=== PATIENT | male | born 1955 | race Caucasian/White ===

== ENCOUNTER 2017-07-01 14:30 | Outpatient (RCR) | payer OTHER, SELFPAY ==
--- NOTE | 2017-06-04 10:23 | HP.PTEVAL_ITS ---
Patient's Visit Information ANH VIRAMONTES is a 61 year old M referred to Physical Therapy by DR.RSTACH Bev with a diagnosis of RTC impingment. Date of Evaluation: 06/04/17 Physical Therapist: Katie Denny - Visit Plan Frequency: 2x /Week Duration: 4 Weeks Plan: Focus on pain management and functional mobility- caution of wrist fracture - Subjective Subjective: Fell May 14, 2016 on the ice. 10 screws and plate at [facility]- broke the wrist. Shoulder pain started about a week ago- went back to [facility]- they went back and they did an injection. The ROM is better but he is still having a lot of pain in the shoulder. The pain is in the upper trap, cervical spine and down to the elbow. Agg: sleeping Eases: keeping it moving. Describes pain as dull/achy. 8-9/10 at its worst. Pain comes and goes. Best: 2/10. Sleep: very disturbed. Goes morning [facility] for occupational therapy. Not sure if he hurt the shoulder when he fell. N/T in the fingers. Eases: heat, ice, movement. No THOMPSON, blurred vision , dizziness. PMHx: HTN, Meds: HTN med, Clonopan,Lysinopril. X-rays were negative. of the shoulder - Objective Posture: FH, RS- increased guarding of the left UE-movement while sitting- squirming'. Gait: no deviation. Observation: splint to left forearm. Palpation: significant trigger points throughout left upper trap and cervical paraspinals. ROM: WNL in all planes for cervical and shoulder. Strength: Scap : fair, Cervical: 5/5, Shoulder: 4+/5 (tested close to shoulder joint to avoid wrist fracture). Special Test: distraction of the cervical spine increased pain - Goals Goal 1:: Patient will be I with HEP and progression Goal Time Frame: 4-6 Weeks Goal 2:: Patient will report 0/10 pain for 1 week Goal Time Frame: 4-6 Weeks Goal 3:: Patient will have mild trigger points throughout musculature Goal Time Frame: 4-6 Weeks Goal 4:: Patient will demo ability to stack 5 cones for 2 min to overhead shelf with 0/10 pain Goal Time Frame: 4-6 Weeks - Rehabilitation Potential Physical Therapy Diagnosis: Patient presents with hypomobility- he has increased pain with ADL's and poor posture guarding of the left UE Rehabilitation Potential: Good - Anticipated Interventions Patient/Client Instruction: Educate patient on: Benefits of Fitness Program For the Purpose of:: To improve performance and independence with ADL's Therapeutic Exercise to Include: Strength training, Endurance training, Agility training, Body mechanics, Postural training, Passive ROM, Active ROM, Scapular Strength/Stabilization For the Purpose of:: To improve muscle performance and motor function Manual Therapy Techniques to Include: Mobilization, Passive ROM, Functional dry needling, Soft tissue mobilization For the Purpose of:: To improve nutrient delivery to tissue TENS: Yes Cryotherapy (ice pack, ice massage): Yes Thermo therapy (hot pack): Yes Ultrasound (thermal/non thermal): Yes For the Purpose of:: To decrease pain Thank you for the opportunity to evaluate your patient. For Medicare and Medicare HMO plans, please review the plan of care and approve it. It will need to be FAXED BACK to us at [phone] for Medicare purposes. Please let me know if there are questions or concerns regarding this plan of care. Physician Signature: Date:
--- NOTE | 2017-09-23 14:12 | HP.PT.NRP ---
HP - Discharge Summary (1) - Patient Information ANH VIRAMONTES was seen in my office for initial evaluation on 06/04/17. The following Plan of Care was established for this patient: Initial Frequency: 2x /Week Initial Duration: 4 Weeks - Anticipated Interventions Patient/Client Instruction: Educate patient on: Benefits of Fitness Program For the Purpose of:: To improve performance and independence with ADL's Therapeutic Exercise to Include: Strength training, Endurance training, Agility training, Body mechanics, Postural training, Passive ROM, Active ROM, Scapular Strength/Stabilization For the Purpose of:: To improve muscle performance and motor function Manual Therapy Techniques to Include: Mobilization, Passive ROM, Functional dry needling, Soft tissue mobilization For the Purpose of:: To improve nutrient delivery to tissue TENS: Yes Cryotherapy (ice pack, ice massage): Yes Thermo therapy (hot pack): Yes Ultrasound (thermal/non thermal): Yes For the Purpose of:: To decrease pain This patient was last seen in our office . Pertinent comments regarding their Physical therapy will appear below: Patient has not returned for 60 days and is appropriate for discharge. Return to MD for further evaluation as needed. At this point I will be discontinuing this patient from physical therapy. I would be happy to see this patient again in the future if found appropriate by the physician. Thank you! Katie Denny
== END 2017-07-01 19:00 | disposition home or self-care (01) ==
LOC: PT 14:30
PROVIDERS: Family Provider Family Medicine; PCP Family Medicine; Visit Provider Orthopaedic Surgery Hand Surgery
DX: M75.42 Impingement syndrome of left shoulder (principal)
CPT/HCPCS: 97014; 97035; 97110; 97140; 97162; 97530; G0283

== ENCOUNTER → 2021-09-05 | Outpatient (CLI) | payer MEDICARE, SELFPAY ==
[2021-09-05 08:58] LABS: PSA,Total- Diagnostic 6.93 ng/mL (0.0-4.0)
== END | disposition home or self-care (01) ==
LOC: LAB 07:29
PROVIDERS: PCP Family Medicine; Referring Provider Urology; Visit Provider Urology
DX: R97.20 Elevated prostate specific antigen [PSA] (principal)
CPT/HCPCS: 36415; 84153

== ENCOUNTER → 2022-03-24 | Outpatient (CLI) | payer MEDICARE, SELFPAY ==
[2022-03-26 17:37] LABS: PSA, Free 3.39 ng/mL; PSA, Free % 9.9 % (.)
== END | disposition home or self-care (01) ==
LOC: LAB 07:14
PROVIDERS: PCP Family Medicine; Referring Provider Urology; Visit Provider Urology
DX: R97.20 Elevated prostate specific antigen [PSA] (principal)
CPT/HCPCS: 36415; 84153; 84154

== ENCOUNTER → 2022-04-02 | Outpatient (CLI) | payer MEDICARE, SELFPAY | END | disposition home or self-care (01) | LOC: LAB 09:56 | PROVIDERS: PCP Family Medicine; Referring Provider Urology; Visit Provider Urology | DX: R97.20 Elevated prostate specific antigen [PSA] (principal) | CPT/HCPCS: 36415; 84153 ==

== ENCOUNTER → 2022-04-10 | Outpatient (CLI) | payer MEDICARE, SELFPAY ==
--- NOTE | 2022-04-10 | IMM_PTH ---
PATIENT: ANH VIRAMONTES LOC: [facility] U#:[id number] AGE/SX: 66/M ROOM: RE04/10/[address]: Dr. Matty Chu MD : 1955 BED: DIS: 04/10/2022 SPEC #: [id number] RECD: 04/12/22 13:43 STATUS: NAHED REQ #: [id number] AMARA: 04/10/22 00:[address]: Matty Chu DEPT: IMMUNOHISTOCHEMISTRY RECD BY: Danyelle Jc ENTERED: 04/12/22 13:44 SP TYPE: IMMUNO OTHR DR: Dr. Vick Napoles MD Tissues: C - PROSTATE RIGHT E - PROSTATE LEFT Procedures: CD31 (add) FACTOR VIII (add) P40 (add) 34BE12 (initial) PHYSICIAN & INSTITUTION [address] [address] SPECIMEN INFORMATION: Tissue Source: C - Right prostate, base, core biopsy, E - Left prostate, mid, core biopsy Clinical Info: Elevated PSA Specimen Number: [id number] C & E CPT code: 55610, 51498 x3 METHODOLOGY: Deparaffinized sections of prefer/formalin-fixed tissue or PAP/DQ stained slides are incubated with monoclonal/polyclonal antibodies/oligonucleotide probes. Localization is made via biotin free immunoperoxidase method. Appropriate controls are performed and reacted as expected. Results on target cell population are indicated in the following table: RESULTS: ANTIBODY / CLONE RESULT Block C P40 (BC28) negative 34BE12 (34BE12) negative Block E CD31 (WAQAR/70A) negative Factor VIII (R Ag) negative These tests were developed and their performance characteristics determined by [facility]. They may not have been cleared or approved by the U.S. Food and Drug Administration. The FDA has determined that such clearance or approval is not necessary. The above immunohistochemical/dualISH markers are ordered and reviewed by the Pathologist. INTERPRETATION: C. Right prostate, base, core biopsy: Adenocarcinoma. E. Left prostate, mid, core biopsy: Negative for lymph-vascular invasion. MAHSA:shawna 04/13/2022
--- NOTE | 2022-04-10 13:00 | PROSBIL_PTH ---
PATIENT: ANH VIRAMONTES LOC: [facility] U#:[id number] AGE/SX: 66/M ROOM: RE04/10/[address]: Dr. Matty Chu MD : 1955 BED: DIS: 04/10/2022 SPEC #: [id number] RECD: 04/10/22 16:20 STATUS: NAHED MILKA #: [id number] AMARA: 04/10/22 13:[address]: Matty Chu DEPT: SURGICAL PATHOLOGY RECD BY: Priti Palomo ENTERED: 04/11/22 07:42 SP TYPE: PROST BX KALIN DR: Dr. Vick Napoles MD Tissues: A - PROSTATE RIGHT B - PROSTATE RIGHT C - PROSTATE RIGHT D - PROSTATE LEFT E - PROSTATE LEFT F - PROSTATE LEFT Procedures: PROSTATE BX HEADER OPERATION: Prostate biopsy PRE-OP DIAGNOSIS: Elevated PSA TISSUE SUBMITTED: A - Right apex, B - Right mid, C - Right base, D - Left apex, E - Left mid, F - Left base MICROSCOPIC DIAGNOSIS A. Right prostate, apex, core biopsy: Prostatic tissue, negative for malignancy. B. Right prostate, mid, core biopsy: Focal high-grade prostatic intraepithelial neoplasia (HGPIN). Focal chronic inflammation. C. Right prostate, base, core biopsy: Prostatic adenocarcinoma. Bolton grade: 4+4=8 Number of cores involved: 1/2 Proportion of tissue involved: ~5-10% Perineural invasion: Not identified. Greatest tumor length: 1.0 cm, discontinuous See comment. D. Left prostate, apex, core biopsy: Prostatic adenocarcinoma. Bobby grade: 4+4=8 Number of cores involved: 1/2 Proportion of tissue involved: ~40% Perineural invasion: Present, focal. Greatest tumor length: 0.5 cm E. Left prostate, mid, core biopsy: Prostatic adenocarcinoma. Bolton grade: 4+5=9 Number of cores involved: 2/2 Proportion of tissue involved: ~90% Perineural invasion: Present, focal. Greatest tumor length: 1.0 cm See comment. F. Left prostate, base, core biopsy: Prostatic adenocarcinoma. Bobby grade: 4+5=9 Number of cores involved: 2/2 Proportion of tissue involved: ~90% Perineural invasion: Not identified. Greatest tumor length: 0.9 cm SJ:shawna 04/12/2022 COMMENT C & E. Immunohistochemistry ([id number]) supports the above diagnosis. Case has been reviewed in consultation with Dr. Castellanos who concurs with the above diagnosis. IDC:AM MICROSCOPIC DESCRIPTION Slides are reviewed. GROSS DESCRIPTION A - Received is one container designated prostate, right apex. The specimen consists of two elongated fragments of light mcdonnell-white soft tissue measuring 0.5 and 1 cm in length and 0.1 cm in diameter. The specimen is totally submitted in one cassette. B - Received is one container designated prostate, right mid. The specimen consists of two elongated fragments of light mcdonnell-white soft tissue each measuring 1.4 cm in length and 0.1 cm in diameter. The specimen is totally submitted in one cassette. C - Received is one container designated prostate, right base. The specimen consists of two elongated fragments of light mcdonnell-white soft tissue each measuring 1.5 cm in length and 0.1 cm in diameter. The specimen is totally submitted in one cassette. D - Received is one container designated prostate, left apex. The specimen consists of two elongated fragments of light mcdonnell-white soft tissue each measuring 1.1 cm in length and 0.1 cm in diameter. The specimen is totally submitted in one cassette. E - Received is one container designated prostate, left mid. The specimen consists of two elongated fragments of light mcdonnell-white soft tissue each measuring 1.5 cm in length and 0.1 cm in diameter. The specimen is totally submitted in one cassette. F - Received is one container designated prostate, left base. The specimen consists of two elongated fragments of light mcdonnell-white soft tissue each measuring 1.5 cm in length and 0.1 cm in diameter. The specimen is totally submitted in one cassette. / MAHSA:shawna 04/11/2022 TC:0 CPT: G0146 ADDENDUM ADDENDUM ADDENDUM ADDENDUM ADDENDUM ADDENDUM ADDENDUM ADDENDUM ADDENDUM ADDENDUM ADDENDUM ADDENDUM ADDENDUM ADDENDUM ADDENDUM ADDENDUM ADDENDUM ADDENDUM ADDENDUM ADDENDUM ADDENDUM 12/26/2023 09:23 ADDENDUM 12/26/2023 09:23 ADDENDUM 12/26/2023 09:23 ADDENDUM 12/26/2023 09:23 ADDENDUM 12/26/2023 09:23 [facility] ADVANCED PROSTATE NGS REPORT FROM [facility] RESULT SUMMARY: Abnormal DETECTED GENOMIC ALTERATIONS: Tier II: Variants of potential clinical significance, MYC p. ([id number]) CLINICAL INFORMATION: Left mid prostate core biopsy showed prostatic adenocarcinoma, Bobby grade 4+5=9, 2/2 cores involved (Testing performed on #[id number]). HISTOPATHOLOGIC REVIEW: Tumor is present and is estimated to comprise >50% of nuclei in the sample. IMMUNOTHERAPY BIOMARKERS: TUMOR MUTATION BURDEN: LOW (0.8mutations/MB) MICROSATELLITE STABILITY: MSI NEGATIVE (2.42%) TUMOR TYPE: Adenocarcinoma Please see complete report in e-chart or EMR
== END | disposition home or self-care (01) ==
LOC: LABSPEC 16:32
PROVIDERS: PCP Family Medicine; Visit Provider Urology
DX: C61 Malignant neoplasm of prostate (principal)
CPT/HCPCS: 88305; 88341; 88342; G0416

== ENCOUNTER → 2022-04-23 | Outpatient (CLI) | payer MEDICARE, SELFPAY ==
--- NOTE | 2022-04-23 08:23 | CT_ITS ---
STUDY: CT ABDOMEN AND PELVIS WITH CONTRAST REASON FOR EXAM: Male, 66 years old. MALIGNANT NEOPLASM OF PROSTATE. Elevated PSA. RADIATION DOSAGE (If Supplied By Facility): CTDIvol = ( 17.71 ) mGy, DLP = ( 1247.99 ) mGycm TECHNIQUE: Transaxial images were obtained from the dome of the diaphragm to the symphysis pubis without oral contrast. IV 100mL Isovue-370 was administered. Sagittal and coronal images were reconstructed. Individualized dose optimization techniques were used for this CT. COMPARISON: None. FINDINGS: The visualized lung bases are unremarkable. Coronary artery calcification. There is decreased attenuation of the liver consistent with steatosis. A tiny cyst is seen in the anterior aspect of the dome of the right lobe of the liver. Normal gallbladder and extrahepatic biliary system. Normal spleen. Normal pancreas. Normal bilateral adrenal glands. Normal right kidney. Normal left kidney. There is a small hiatal hernia. Normal small intestine. Normal colon. The appendix is visualized and appears normal. There is scattered atherosclerotic calcification of the abdominal aorta, without a demonstrated aneurysm. Normal inferior vena cava. Normal retroperitoneum. Normal urinary bladder. There is enlargement of the prostate gland. The prostate measures 4.6 x 5.2 cm. Normal abdominal wall. Multiple sclerotic foci are seen throughout the lower visualized thoracic vertebrae and lumbar spine. Sclerotic metastasis is seen at the L1 level as well as the S1 level. Scattered sclerotic foci are seen in the iliac bones as well as the sacrum and proximal femurs. CT/Abdomen/Pelvis W IV Cont ONLY IMPRESSION: Fatty infiltration of the liver. Prostatic enlargement. Sclerotic bony metastasis. Electronically Signed: Jimmy Hauser MD at 9:49 EST ,
[2022-04-23 08:55] LABS: EGFR FINGERSTICK > 60.0000 mL/min (>60)
== END | disposition home or self-care (01) ==
LOC: CT 08:22
PROVIDERS: PCP Family Medicine; Referring Provider Urology; Visit Provider Urology
DX: C61 Malignant neoplasm of prostate (principal)
CPT/HCPCS: 74177; Q9967

== ENCOUNTER → 2022-05-04 | Outpatient (CLI) | payer MEDICARE, SELFPAY ==
--- NOTE | 2022-05-04 08:41 | NM_ITS ---
CLINICAL: 66-year-old male with history of primary prostate carcinoma. WHOLE BODY 99m Tc MDP RADIONUCLIDE BONE SCINTIGRAPHY COMPARISON: CT of the abdomen-pelvis report 04/23/2022 FINDINGS: Following the intravenous administration of 25.6 mCi of 99m Tc MDP, whole body bone images reveal: 1. Multifocal increased radiopharmaceutical concentration is defined in the axial skeletal structures, as well as the bilateral proximal femurs, the left mid femoral diaphysis, distal left tibial metaphysis. 2. Facilitated uptake is noted in the bilateral knees, the right and left ankle articulations, the acromioclavicular compartment of the right shoulder, the right wrist and left midfoot. 3. The remaining skeletal structures are scintigraphically unremarkable with normal-appearing renal images and urinary bladder activity identified. NM/Bone Scan Whole Body IMPRESSION: 1. The disseminated foci of increased radiopharmaceutical concentration noted throughout the axial skeleton is commensurate with diffuse osteoblastic metastatic disease. 2. Degenerative arthritis is defined in the right and left knee and ankle articulations, the right shoulder, the right wrist and left midfoot. Electronically Signed: Wilbert Cruz, at 10:54 EST ,
== END | disposition home or self-care (01) ==
LOC: NM 08:39
PROVIDERS: Referring Provider Urology; Visit Provider Urology
DX: C61 Malignant neoplasm of prostate (principal)
CPT/HCPCS: 78306; A9503

== ENCOUNTER 2022-05-21 09:28 | Day surgery (SDC) | payer MEDICARE, SELFPAY ==
[2022-05-21] VITALS (8 sets, daily range): BP systolic 157–181; BP diastolic 77–92; PULSE 60–73; RESP 16–18; TEMP 36.2–36.9; O2SAT 93–98; BMI 33.2
[2022-05-21] MEDS: Lactated Ringers 1,000 ML 15 ML IV (09:45)
--- NOTE | 2022-05-21 10:48 | PCM.HP.BLA ---
History and Physical Date of Admission: 05/21/22 Intake Vital Signs ? 05/14/2306:58 Height 5 ft 8 in Weight: 220 lb 2 oz BMI 33.5 BP 185/83 H Blood Pressure Location Rt brachial Position Sitting Respiration 18 Pulse 73 Pulse Source Monitor Temp 97.5 F L Temp Source Temporal Pulse Oximetry (%) 95 Oxygen Delivery Method room air Intake Visit Reasons:?PORT PLACEMENT Chief Complaint: Consult port placement Xm1 Tank Driver Required: No Is patient in pain?: No Allergies Penicillins Allergy (Verified 05/14/22 07:59) Unknown Medications lisinopril 10 mg tablet 10 mg PO DAILY 05/14/17 [History Confirmed 05/14/22] atenolol 50 mg tablet 100 mg PO DAILY 04/25/22 [History Confirmed 05/14/22] bicalutamide 50 mg tablet (Casodex) 50 mg PO DAILY 04/25/22 [History Confirmed 05/14/22] clonazepam 1 mg tablet 1 mg PO DAILY 04/25/22 [History Confirmed 05/14/22] omeprazole 20 mg capsule,delayed release 20 mg PO DAILY PRN 04/25/22 [History Confirmed 05/14/22] leuprolide (3 month) 22.5 mg (3 month) subcutaneous syringe ([employer]) 22.5 mg subcut [id number] 05/09/22 [History Confirmed 05/14/22] dexamethasone 4 mg tablet 8 mg PO .COMPLEX #4 tabs 05/10/22 [Rx Confirmed 05/14/22] lidocaine-prilocaine 2.5 %-2.5 % topical cream 1 applic topical ONCE PRN port access 30 days #30 grams 05/10/22 [Rx Confirmed 05/14/22] ondansetron 8 mg disintegrating tablet 8 mg PO Q8H PRN nausea and vomiting #30 tabs 05/10/22 [Rx Confirmed 05/14/22] PFSH Medical History? Bone metastases Encounter for education Prostate cancer Surgical History? History of surgery on arm History of surgery on wrist Hx of colonoscopy Hx of hand surgery Hx of hernia repair Hx of knee surgery Hx of vasectomy Family History? Father Cardiac abnormality Diabetes Social History? household members:? spouse Smoking Status:? Never smoker alcohol intake:? never substance use type:? does not use HPI HPI HPI: Patient is a 66-year-old male here for chest port placement for metastatic prostate cancer. ROS General General: No weight change, appetite, fatigue, colon cancer, breast cancer or weakness HEENT HEENT: No difficulty swallowing, eye injury, eye surgery, swollen glands or hoarseness Endo Endocrine: No thyroid disease, diabetes mellitus, thyroid cancer, Hair loss, heat intolerance or cold intolerance Skin Skin: No rash or changing moles Breast Breast: No left breast lump, right breast lump, nipple discharge, breast pain, abnormal mammogram, abnormal US or breast enlargement Musc Musculoskeletal: Yes arthritis; No back problems, rheumatoid arthritis, gout or joint pain Cardio Cardiovascular: Yes high blood pressure; No murmur, pacemaker, heart disease, atrial fibrillation, heart attack, heart stent, palpitations, shortness of breat with exertion or chest pain Psych Psychiatric: Yes anxiety; No depression or hearing voices Resp Respiratory: No shortness of breath, No sleep apnea, No cough, No COPD, No asthma, No emphysema and No wheezing Gastro Gastrointestinal: No abdominal pain, No nausea or vomiting, No diarrhea, No constipation, No blood in stool, Yes acid reflux, No hemorrhoids, No ulcers, No gallbladder problem and No black,tarry stools Raymond Hematologic: No blood thinners, No blood disorders, No bleeding, No anemia and No blood clots Neuro Neurologic: No system reviewed and no additional complaints, except as documented, No as per HPI, No abnormal gait, No abnormal hearing, No abnormal movements, No abnormal speech, No behavioral changes, No burning sensations, No confusion, No convulsions, No disequilibrium, No dizziness, No localized weakness, No frequent falls, No headache(s), No lack of coordination, No loss of vision, No memory loss, No numbness, No other visual disturbances, No radicular pain, No restless legs, No sensory deficit, No syncope, No tingling, No tremor(s), No weakness and No other Exam Const General: cooperative Orientation: alert and oriented x3 HENMT Head: normal to inspection Neck Neck: normal visual inspection and full ROM Chest Chest palpation & inspection: normal inspection of the chest Resp Effort & Inspection: normal respiratory effort Auscultation: clear to auscultation bilaterally Cardio Rate: regular rate Rhythm: regular rhythm GI Inspection: non-distended Palpation: soft and nontender Skin General: no rashes or lesions noted Neuro General: patient alert and patient oriented x3 Extrem General: full ROM Psych Appearance: grossly normal Mental Status: mental status grossly normal Assessment and Plan Assessment and Plan (1) Encounter for adjustment and management of vascular access device: ?Status:?Acute ?Plan: Patient is here for discussion of right chest port placement for metastatic prostate cancer.? I discussed chest port placement with the patient in detail.? I discussed the risks including but not limited to bleeding, infection, pneumothorax or line infection or DVT.? Patient understands the risks and will proceed.? I will plan to leave the patient accessed as he is starting chemotherapy the day after surgery. Marty Landis MD Pager: [facility] [address] [place] [address], [address] [place] [address] Office: I have examined the patient and the H&P has been reviewed. There are no clinical changes since date of exam.
[2022-05-21] MEDS: Clindamycin 900 MG/50 ML BAG 75 MG IV (11:14)
[2022-05-21] MEDS: Bupiv/Epi 0.5% Mpf 30 ML Vial (11:30)
--- NOTE | 2022-05-21 12:03 | RAD_ITS ---
STUDY: X-RAY CHEST REASON FOR EXAM: Male, 66 years old. Line placement -- in pacu TECHNIQUE: Single AP portable view of the chest. COMPARISON: Comparison is made with prior study dated 04/25/2022. FINDINGS: The right-sided portacatheter is in place. The tip is in the midportion of the superior vena cava. Elevation of the right hemidiaphragm. The lungs are clear. There is no demonstrated pleural abnormality. Normal size heart. Normal mediastinum and sam. Normal visualized pulmonary arteries. There is atherosclerotic calcification of the aortic arch with tortuosity. There are diffuse degenerative changes of the visualized thoracic spine. Normal visualized ribs, clavicles, and shoulders. There is no demonstrated abnormality of the visualized soft tissue structures of the upper abdomen. RAD/CXR for Line Placement IMPRESSION: The tip of the right portacatheter is in the midportion of the superior vena cava. Electronically Signed: Jimmy Hauser MD at 12:52 EST ,
--- NOTE | 2022-05-21 12:04 | OP.PCM_ITS ---
Report of Operation Date of Procedure: 05/21/22 Pre-Operative Diagnosis: Prostate cancer with need for vascular access for chem otherapy Post-Operative Diagnosis: Same Surgery/Procedure Performed:: Ultrasound and fluoroscopy guided right chest port placement utilizing right IJ Description of Procedure: After obtaining informed consent patient was brought back to the operating room MAC anesthesia was induced and the right chest and neck were prepped in normal sterile fashion. Ultrasound was used to evaluate both IJs and the right IJ was selected. Next, using a needle, the right IJ was accessed and a guidewire was passed on into the superior vena cava under fluoroscopy guidance. A small incision was made over the puncture site and the dilator introducer was placed over the guidewire. Next this was capped and the pocket was made for the port. 1% lidocaine with epinephrine was injected in the proposed port site. An incision was made with scalpel. Electrocautery was used to make a pocket under the skin and subcutaneous tissue. Hemostasis was obtained. Next, the catheter was tunneled up to the neck incision site and placed through the introducer. The peel-away introducer was removed and the position of the catheter was confirmed on fluoroscopy. Next, the catheter was trimmed and attached to the port with the locking device. Interrupted 2-0 Vicryl sutures were used to anchor the port to the chest wall and then the port was placed inside the pocket. The pocket was then flushed with saline and the port irrigated with saline. The port was accessed through the skin. There was good blood return and the port flushed easily. Next, heparin was injected into the port. The port was left flush as the patient is having a treatment tomorrow. The skin was closed with subcutaneous interrupted 3-0 Vicryl sutures. A single 3-0 Vicryl sutures placed under the skin at the neck incision site. Steri-Strips were placed as well as op sites. Patient tolerated procedure well, was taken to PACU in stable condition. Chest x-ray will be obtained. Grafts/Implants Used: 8 [place] PowerPort Admit VTE Documentation VTE Mechan Device Prophylaxis: SCD's
--- NOTE | 2022-05-21 12:05 | DCINST_ITS ---
Discharge Instructions Procedure Port-A-Cath Diet Discharge Diet: Light diet - advance as tolerated (Pain medication may cause nausea. You should typically eat light foods as you take your pain medication.) Activity Discharge Activity: Return to Normal Activity and May Shower (with your bandage in place in 1-2 days after surgery. DO NOT SHOWER WHEN YOUR PORT IS ACCESSED.) Dressing / Incision Call your doctor if your incision/area has: Continuous Slow Oozing, Sudden Increased Bleeding, Increased Pain/ Swelling, Increased Redness and Foul Smelling Discharge Call your doctor if you observe: Fever of 101 or Higher Remove Dressing in: 2 days Cleanse incision/area with: Soap & Water Follow Up Care Please Follow Up With: Marty Landis MD When: as needed [phone] Test Results: Test results from this visit will be discussed in further detail at your follow- up appointment, if applicable. Discharge Plan Admission Attending Provider: Marty Landis Primary Care Provider: Best Camacho Instructions Additional Instructions / Restrictions: Ibuprofen and Tylenol for pain Discharge Orders/Prescriptions Prescriptions: No Action bicalutamide [Casodex] 50 mg tablet 50 mg PO DAILY omeprazole 20 mg capsule,delayed release(DR/EC) 20 mg PO DAILY PRN (Reason: GERD) clonazepam 1 mg tablet 0.5 mg PO PRN PRN (Reason: Sleep) Label Comments: 0.5-1mg Eligard (3 month) 22.5 mg syringe 22.5 mg subcut [id number] lidocaine-prilocaine 2.5-2.5 % cream 1 applic topical ONCE PRN (Reason: port access) 30 Days Qty: 30 2RF ondansetron 8 mg tablet,disintegrating 8 mg PO Q8H PRN (Reason: nausea and vomiting) Qty: 30 2RF dexamethasone 4 mg tablet 8 mg PO .COMPLEX Qty: 4 5RF Rx Instructions: 8 mg orally ONLY 12 hours before chemotherapy and 1 hour before chemotherapy; atenolol 50 mg tablet 100 mg PO DAILY lisinopril 10 MG tablet 10 mg PO DAILY diphenhydramine-acetaminophen [Tylenol PM Extra Strength] 25-500 mg Tablet 1 tab PO QHS PRN (Reason: Sleep) Referrals / Follow Up: Best Camacho DO [Primary Care Provider] - Disposition Disposition (needs filled in before D/C Order can be placed): Home, Self Care
== END 2022-05-21 13:28 | disposition home or self-care (01) ==
LOC: SDC 09:29 → AC 09:30
PROVIDERS: Referring Provider Surgery; Visit Provider Surgery
PROC: (CPT 36561; principal; 2022-05-21 10:45)
DX: Z45.2 Encounter for adjustment and management of vascular access device (principal); C79.51 Secondary malignant neoplasm of bone; C61 Malignant neoplasm of prostate; I10 Essential (primary) hypertension; Z79.899 Other long term (current) drug therapy
CPT/HCPCS: 36561; 71045; 77001; J7120; C1788

== ENCOUNTER → 2022-12-18 | Outpatient (CLI) | payer MEDICARE, SELFPAY ==
--- NOTE | 2022-12-18 07:15 | NM_ITS ---
CLINICAL: 66-year-old male with history of primary prostate carcinoma. WHOLE BODY 99m Tc MDP RADIONUCLIDE BONE SCINTIGRAPHY COMPARISON: Previous whole body bone scintigraphy study dated 05/04/2022 FINDINGS: Following the intravenous administration of 25.7 mCi of 99m Tc MDP, whole body bone images reveal: 1. Persistent increased radiopharmaceutical concentration is multifocally apparent in the appendicular and axial skeleton with a decrease in overall number of defined scintigraphic abnormalities. 2. Focal increased radiopharmaceutical concentration is noted in the sternoclavicular compartment of the left shoulder, the patellofemoral compartments of both knees, medial tibial compartment of the left knee, the ankles bilaterally, the left midfoot. 3. The remaining skeletal structures are scintigraphically unremarkable with normal-appearing renal images and urinary bladder activity identified. A presumed asymptomatic left knee arthroplasty is defined with persistent increased uptake noted in the medial femoral and tibial components. NM/Bone Scan Whole Body IMPRESSION: 1. The increase in radiopharmaceutical concentration multifocally defined in the axial and appendicular skeletal structures with an overall decrease in the number of scintigraphic foci is commensurate with skeletal metastatic disease. 2. Degenerative arthrosis is manifest in the left shoulder, the patellofemoral right knee, patellofemoral compartment of the left knee (in the absence of patellar hardware placement) the bilateral ankles and left midfoot. 3. Overall compared to the study dated 05/04/2022, there is continued demonstration of osteoblastic turnover indicative of skeletal metastatic disease with a decrease in overall number of defined osseous abnormalities. Electronically Signed: Wilbert Cruz, at 22:00 EDT ,
== END | disposition home or self-care (01) ==
LOC: NM 07:15
PROVIDERS: PCP Registered Nurse; Referring Provider Internal Medicine Hematology & Oncology; Visit Provider Internal Medicine Hematology & Oncology
DX: Z85.46 Personal history of malignant neoplasm of prostate (principal)
CPT/HCPCS: 78306; A9503

== ENCOUNTER → 2023-09-17 | Outpatient (CLI) | payer MEDICARE, SELFPAY ==
--- NOTE | 2023-09-17 07:50 | NM_ITS ---
CLINICAL: 68-year-old male with history of primary prostate carcinoma. WHOLE BODY 99m Tc MDP RADIONUCLIDE BONE SCINTIGRAPHY COMPARISON: None available FINDINGS: Following the intravenous administration of 26.2 mCi of 99m Tc MDP, whole body bone images reveal: 1. Increased radiopharmaceutical concentration is defined in the bilateral ribs, the left iliac crest, the right sacral ala and sacrum, posterior ilium, the left acetabulum, the cervical, thoracic and lumbar spine, bilateral proximal femoral metaphysis, the mid left femoral diaphysis. 2. Enhanced uptake is noted in the medial tibial compartments of both knees, the medial femoral compartment of the left knee, the patellofemoral compartments of both knees, the left midfoot, the right-left ankles, the acromioclavicular compartments of both shoulders, the sternoclavicular compartment of the left shoulder, the right wrist. 3. The remaining skeletal structures are scintigraphically unremarkable with normal-appearing renal images and urinary bladder activity identified. NM/Bone Scan Whole Body IMPRESSION: 1. The increase in radiotracer distribution defined in the bilateral ribs, left iliac crest, the left sacral ala and sacrum, right posterior ilium, left acetabulum, the cervical, thoracic and lumbar spine, the bilateral proximal femoral metaphysis, the left mid femoral diaphysis is commensurate with osteoblastic turnover attributed to skeletal metastasis. 2. Degenerative arthritis is demonstrated in the bilateral knees, the left midfoot, ankles bilaterally, both shoulders, the right wrist. Electronically Signed: Wilbert Cruz, at 10:15 EDT ,
== END | disposition home or self-care (01) ==
PROVIDERS: PCP Registered Nurse; Referring Provider Internal Medicine Hematology & Oncology; Visit Provider Internal Medicine Hematology & Oncology
DX: C61 Malignant neoplasm of prostate (principal)
CPT/HCPCS: 78306; A9503

== ENCOUNTER → 2023-09-24 | Outpatient (CLI) | payer MEDICARE, SELFPAY ==
--- NOTE | 2023-09-24 10:20 | BD_ITS ---
STUDY: DUAL ENERGY X-RAY ABSORPTIOMETRY / DXA REASON FOR EXAM: Male, 68 years old. C61 TECHNIQUE: Bone Mineral Density (BMD) measurements of lumbar spine and left hip were obtained. COMPARISON: None. FINDINGS: Lumbar Spine (L1-L4): g/cm2 (1.168) / T-score (0.7) / Z-score (1.5) Findings are suggestive of normal bone density with a low fracture risk. Left Femur Total: g/cm2 (0.901) / T-score (-0.9) / Z-score (-0.3) Left Femoral Neck: g/cm2 (0.716) / T-score (-1.6) / Z-score (-0.4) BD/Dexa Bone Density Study IMPRESSION: The patient is considered osteopenic as outlined below according to World [employer] Organization (WHO) criteria with a moderate fracture risk. Reference Information: The T-score is the number of standard deviations above or below the standard which is normal for young adults at their peak bone mineral density. The World Health Organization (WHO) interprets the T-scores as follows: Above -1 Normal bone density Between -1 and -2.5 Osteopenia Equal to / or below -2.5 Osteoporosis As a practical clinical guideline, osteopenia may be graded as follows: Mild -1 through -1.5 Moderate -1.6 through -2.0 Severe -2.1 through -2.4 The Z-score is the number of standard deviations above or below age-matched controls. A Z-score of less than -1.5 would be considered abnormal. References: 1. NIH Osteoporosis and Related Bone Diseases www osteo.org 2. International Society for Clinical Densitometry www iscd.org 3. National Osteoporosis Foundation www nof.org Electronically Signed: Jimmy Hauser MD at 9:05 EDT ,
== END | disposition home or self-care (01) ==
PROVIDERS: PCP Registered Nurse; Referring Provider Urology; Visit Provider Urology
DX: C61 Malignant neoplasm of prostate (principal); C79.51 Secondary malignant neoplasm of bone; M81.0 Age-related osteoporosis without current pathological fracture
CPT/HCPCS: 77080

== ENCOUNTER → 2023-12-12 | Outpatient (CLI) | payer MEDICARE, SELFPAY ==
--- NOTE | 2023-12-12 07:21 | NM_ITS ---
CLINICAL: 68-year-old male with history of prostate carcinoma metastatic to bone. WHOLE BODY 99m Tc MDP RADIONUCLIDE BONE SCINTIGRAPHY COMPARISON: Previous whole body bone scintigraphy study dated 09/17/2023 FINDINGS: Following the intravenous administration of 27.4 mCi of 99m Tc MDP, whole body bone images reveal: 1. Multifocal increased tracer uptake remains apparent in the visualized axial skeleton and bilateral proximal femurs, distal left femoral diaphysis with newly identified increased uptake noted in the bilateral lower posterior chest wall-rib. 2. Redefined enhanced radiopharmaceutical concentration is noted in the right-left knee and ankle articulations, the left midfoot, the shoulders bilaterally. 3. The remaining skeletal structures are scintigraphically unremarkable with normal-appearing renal images and urinary bladder activity identified. The visualized left knee arthroplasty is relatively unchanged in presentation. NM/Bone Scan Whole Body IMPRESSION: 1. Increased radiotracer multifocally apparent in the appendicular and axial skeleton, newly visualized in the bilateral lower posterior ribs is commensurate with skeletal metastatic disease. 2. Degenerative arthritis is demonstrated in the knee and ankle articulations bilaterally, the left midfoot and both shoulders. 3. Overall compared to the previous whole body bone scintigraphy study dated 09/17/2023, there is minimal interval change. Electronically Signed: Wilbert Cruz DO at 10:17 EDT ,
== END | disposition home or self-care (01) ==
PROVIDERS: PCP Registered Nurse; Referring Provider Internal Medicine Hematology & Oncology; Visit Provider Internal Medicine Hematology & Oncology
DX: C61 Malignant neoplasm of prostate (principal); C79.51 Secondary malignant neoplasm of bone
CPT/HCPCS: 78306; A9503

== ENCOUNTER → 2024-03-17 | Outpatient (CLI) | payer MEDICARE, SELFPAY | END | disposition home or self-care (01) | LOC: NM 07:48 | PROVIDERS: PCP Registered Nurse; Referring Provider Internal Medicine Hematology & Oncology; Visit Provider Internal Medicine Hematology & Oncology | DX: C61 Malignant neoplasm of prostate (principal); C79.51 Secondary malignant neoplasm of bone; R97.20 Elevated prostate specific antigen [PSA] | CPT/HCPCS: 78306; A9503 ==

== ENCOUNTER → 2024-06-01 | Outpatient (CLI) | payer MEDICARE, SELFPAY ==
--- NOTE | 2024-06-01 13:37 | ECHODONC_ITS ---
Reason For Study: ANTINEOPLASTIC CHEMO Procedure This was a 2D Doppler, Color Flow transthoracic echocardiogram. The study was technically difficult. Unable to preform strain. Exam performed in department. Left Ventricle Normal LV size. Mild concentric left ventricular hypertrophy. Left ventricular systolic function is normal. The left ventricular ejection fraction is 55 %. No regional wall motion abnormalities noted. Right Ventricle Normal RV size. Normal systolic function. Atria Normal left atrium. Normal right atrium. Mitral Valve Normal mitral valve. Tricuspid Valve Normal tricuspid valve. Aortic Valve Trisinus/trileaflet aortic valve. Great Vessels Normal aortic root. The pulmonary artery is normal size. Pericardium/Pleural No pericardial effusion. MMode/2D Measurements & Calculations LVIDd: 4.7 cm IVSd: 1.2 cm LVOT diam: 2.0 cm LVIDs: 3.3 cm LVPWd: 1.3 cm LVOT area: 3.1 cm2 FS: 29.0 % Ao root diam: 4.2 cm LAV(MOD-sp4): 32.4 ml LVAd ap4: 26.2 cm2 LVLd ap4: 8.1 cm EDV(MOD-sp4): 73.1 ml EDV(sp4-el): 72.5 ml LVAs ap4: 16.3 cm2 LVLs ap4: 7.2 cm ESV(MOD-sp4): 33.2 ml ESV(sp4-el): 31.5 ml EF(MOD-sp4): 54.5 % EF(sp4-el): 56.5 % SV(MOD-sp4): 39.8 ml SV(sp4-el): 41.0 ml LA A4 area: 13.5 cm2 SI(MOD-sp4): 18.2 ml/m2 LA dimension(2D): 3.7 cm RA A4 area: 9.2 cm2 Time Measurements MV dec time: 0.32 sec Doppler Measurements & Calculations MV E max travis: 56.4 cm/sec Lat Peak E' Travis: 4.8 cm/sec Med Peak E' Travis: 5.0 cm/sec MV A max travis: 76.9 cm/sec E/E' lat: 11.7 E/E' med: 11.2 MV E/A: 0.73 MV V2 max: 80.1 cm/sec Ao V2 max: 131.0 cm/sec MV max P.6 mmHg MV dec slope: 182.8 cm/sec2 Ao max P.0 mmHg MV V2 mean: 44.8 cm/sec Ao V2 mean: 96.5 cm/sec MV mean P.95 mmHg Ao mean P.0 mmHg MV V2 VTI: 30.4 cm Ao V2 VTI: 24.8 cm AV (velocity ratio): 0.85 MVA(VTI): 2.2 cm2 ASHLEY(I,D): 2.7 cm2 ASHLEY(V,D): 2.6 cm2 AI max travis: 519.4 cm/sec LV V1 max: 106.6 cm/sec SV(LVOT): 66.4 ml AI max P.9 mmHg LV V1 max P.6 mmHg AI dec slope: 288.8 cm/sec2 LV V1 mean P.2 mmHg AI P1/2t: 526.8 msec LV V1 mean: 68.2 cm/sec LV V1 VTI: 21.1 cm PA V2 max: 90.3 cm/sec PA V2 mean: 61.9 cm/sec ECHO/ONC Echo Complete Interpretation Summary Normal LV size. Left ventricular systolic function is normal. The left ventricular ejection fraction is 55 %. Mild concentric left ventricular hypertrophy. Ordering Physician: Breezy Delong Referring Physician: Breezy Delong Performed By: Ciera Pineda RCS
== END | disposition home or self-care (01) ==
LOC: CVS 13:35
PROVIDERS: PCP Registered Nurse; Referring Provider Internal Medicine Cardiovascular Disease; Visit Provider Internal Medicine Cardiovascular Disease
DX: Z51.81 Encounter for therapeutic drug level monitoring (principal); Z79.899 Other long term (current) drug therapy
CPT/HCPCS: 93306; 93356

== ENCOUNTER 2024-07-01 09:04 | Emergency (ER) | payer MEDICARE, SELFPAY ==
[2024-07-01 09:06] VITALS: BP 158/78; PULSE 78; RESP 16; TEMP 37.1; O2SAT 98; BMI 36.8
--- NOTE | 2024-07-01 09:28 | EDS_ITS ---
HPI History of Present Illness Chief Complaint: Back Narrative Narrative: 68-year-old male past medical history of prostate cancer with bone metastasis, chronic low back pain takes tramadol and Flexeril presents with low back pain that is worsening and sciatic pain since yesterday evening. He states that he has been having problems with his back for quite some time and is scheduled for an MRI on July 10, approximately 9 days from now. He is seeing his primary care provider who increased the dosing of his medication to every 6 hours. He has pain in his low back radiating down his right leg. It similar to the back pain that he had previously. He denies any fever or chills, no saddle anesthesia, no loss of bowel or bladder. Essentially, he presents to the emergency department with ongoing back pain that he has had for years, without any red flag signs for cauda equina. [facility] Medical History Encounter for chemotherapy management Oral candidiasis Sleep disturbance Diarrhea Wears glasses Anxiety Arthritis Back pain Gastric reflux Non-smoker Leg cramps Hypertension Encounter for education Bone metastases Prostate cancer Home Medications ?Medication ?Instructions ?Recorded ?Last Taken ?Type atenolol 50 mg tablet 100 mg PO DAILY 04/25/22 History clonazepam 1 mg tablet 0.5 mg PO PRN PRN Sleep 04/06 05/27 Unknown History omeprazole 20 mg capsule,delayed 20 mg PO DAILY PRN GE RD 04/25/22 05/21/22 History release leuprolide (3 month) 22.5 mg (3 22.5 mg subcut [id number] 05/09/22 Unknown History month) subcutaneous syringe (Ciaran) diphenhydramine 25 1 tab PO QHS PRN Sleep 05/17 Unknown History mg-acetaminophen 500 mg tablet (Tylenol PM Extra Strength) lisinopril 20 mg tablet 40 mg PO DAILY 05/14/23 Unkn own History meloxicam 7.5 mg tablet 7.5 mg PO DAILY PRN 12/18/23 Unknown History enzalutamide 40 mg capsule (Xtandi) 160 mg PO QDAY Unknown History amlodipine 10 mg tablet 10 mg PO QDAY 05/05/24 Unkno wn History hydrochlorothiazide 25 mg tablet 25 mg PO QAM #90 tabs 05/22/24 Unknown Rx apalutamide 240 mg tablet (Erleada) 240 mg PO QDAY Unknown History oxycodone 5 mg tablet 5 mg PO Q6H PRN pain 3 days #12 07/01/24 Unknown Rx tabs Allergy/AdvReac Type Severity Reaction Status Date / Time Penicillins Allergy Unknown Verified 07/01/24 09:06 Family History Father Cardiac abnormality Diabetes Surgical History Hx of vasectomy Hx of knee surgery Hx of hernia repair Hx of hand surgery History of surgery on wrist Hx of colonoscopy History of surgery on arm Social History household members: spouse Smoking Status: Never smoker alcohol intake: never substance use type: does not use ROS ROS ED ROS Narrative Review of systems positive for lumbar radicular pain on the right. No fevers or chills, no loss of bowel or bladder. Positive pain in low back radiating down right leg. EXAM Physical Exam Narrative Exam Narrative: Afebrile. Vital signs noted. Nontoxic-appearing. Cardiovascular examination reveals regular rate and rhythm. Lungs are clear to auscultation bilaterally. Abdomen is soft nontender without guarding or rebound. Inspection of the back reveals no crepitance, no vertebral point tenderness or step-off. He is neurovascularly intact to the bilateral lower extremities, and has full range of motion of his bilateral lower extremities. DTRs at the patella level are d ifficult to elicit but appear equal. Straight leg raising is negative bilaterally. Const Vital Signs: 07/01/24 09:06 Temperature 98.7 F Temperature Source Oral Pulse Rate 78 Respiratory Rate 16 Blood Pressure 158/78 H Blood Pressure Mean 104 Pulse Ox 98 Oxygen Delivery Method Room Air MDM MDM MDM Narrative Medical decision making narrative: Differential diagnosis includes but not limited to new lower back fracture versus radicular pain versus cauda equina versus spinal stenosis. I have very low suspicion for cauda equina. I had a lengthy discussion with the patient regarding his MRI imaging. I do not feel that he needs an emergent MRI based on his history and physical examination. He was given oxycodone here for analgesia and CT will be obtained to look for any sort of compression fracture as he states he has not had any imaging of his back/CT of his back for few years. We did review his prior bone scan from 2023 and he had multiple areas in his ribs, low back, and pelvis positive for bone metastases. I had ordered oxycodone for analgesia, but he was mildly insistent with the RN that he wanted a shot. He was given an intramuscular injection of morphine. I reviewed the radiology report of the CT of the lumbar spine and there are sclerotic metastases of the visualized lumbar vertebrae as well as the sacrum and iliac bones. There are degenerative changes and facet disease noted as well but no acute fracture. Patient was seen ambulating to the ED bathroom. In discussion with the patient, he states he is having intractable pain and already takes multiple medications at home. I will write him a prescription for oxycodone, and I discussed with him observation and placement given his intractable back and hip pain. He declines and states he would like to be discharged. He was told that further narcotic should come from either pain management or his primary care provider. Once again, I offered him admission but he declined. Return instructions to the emergency department were reviewed. Disposition is discharged in stable condition. History & Record Review Discussion w/independent historian: Patient Radiography Diagnostic Testing: Clinical Impression(s) from Imaging Studies Lumbar Spine CT 07/01/24 09:28 IMPRESSION: LUMBAR DEGENERATIVE DISC AND FACET DISEASE. Sclerotic metastasis of the visualized lumbar vertebrae as well as the sacrum and iliac bones. One or more dose reduction techniques were used (e.g., Automated exposure control, adjustment of the mA and/or kV according to patient size, use of iterative reconstruction technique). Reading Location: [id number] Discharge Plan Triage Chief Complaint: Back ED Provider: Hammad Cohen Dx/Rx/DC Orders Clinical Impression: Acute on chronic low back pain, Lumbar radicular pain, Bone metastases Instructions: Taking Opioid Medicine, ED Back Pain (Acute or Chronic), ED Pain Management: Chronic, ED Sciatica Prescriptions: New oxycodone 5 mg tablet 5 mg PO Q6H PRN (Reason: pain) 3 Days Qty: 12 0RF No Action omeprazole 20 mg capsule,delayed release(DR/EC) 20 mg PO DAILY PRN (Reason: GERD) clonazepam 1 mg tablet 0.5 mg PO PRN PRN (Reason: Sleep) Patient Comments: 0.5-1mg Eligard (3 month) 22.5 mg syringe 22.5 mg subcut [id number] lisinopril 20 mg tablet 40 mg PO DAILY meloxicam 7.5 mg tablet 7.5 mg PO DAILY PRN Xtandi 40 mg capsule 160 mg PO QDAY amlodipine 10 mg tablet 10 mg PO QDAY hydrochlorothiazide 25 mg tablet 25 mg PO QAM Qty: 90 2RF atenolol 50 mg tablet 100 mg PO DAILY diphenhydramine-acetaminophen [Tylenol PM Extra Strength] 25-500 mg Tablet 1 tab PO QHS PRN (Reason: Sleep) Erleada 240 mg tablet 240 mg PO QDAY Primary Care Provider: Patti Gomez NP Referrals: Patti Gomez NP, [facility] [Primary Care Provider] - 3-5 Days Activity Restrictions/Additional Instructions: Continue your previous medications for pain. Take oxycodone for breakthrough pain. Follow-up with your primary care provider in the next 3 to 5 days. Make sure that you get your MRI on 10 July. Return with new or worsening symptoms. Print Language: Bermudian Disposition Disposition: Home, Self Care
--- NOTE | 2024-07-01 09:28 | CT_ITS ---
PROCEDURE: SPINE LUMBAR WITHOUT CONTRAST REASON FOR EXAM: Severe low back pain with radiation to the right leg. History of prostate cancer and bone metastasis. . TECHNIQUE: Lumbar spine CT without contrast. COMPARISON: None. FINDINGS: Vertebrae: Multiple sclerotic foci are seen within the visualized vertebral bodies as well as the spinous process and the iliac bones more pronounced on the right side. There is also evidence of sacral sclerotic lesions in keeping with diffuse metastatic deposits. Alignment: No spondylolisthesis. L1-2: Moderate degree of disc space narrowing. Spondylosis. No significant stenosis seen. L2-3: Marked degree of disc space narrowing and disc degeneration. Spondylosis. Bilateral neural foraminal stenosis moderate degree. L3-4: Mild degree of disc space narrowing. Facet joint hypertrophy with bilateral neural foraminal stenosis. L4-5: Mild degree of disc space narrowing. Facet joint osteoarthritis and hypertrophy with bilateral neural foraminal stenosis. L5-S1: Marked degree of disc space narrowing and disc degeneration. No significant stenosis seen. Sacrum: Sclerotic metastasis. Visualized retroperitoneal structures are unremarkable. CT/Spine Lumbar without Contrast IMPRESSION: LUMBAR DEGENERATIVE DISC AND FACET DISEASE. Sclerotic metastasis of the visualized lumbar vertebrae as well as the sacrum a nd iliac bones. One or more dose reduction techniques were used (e.g., Automated exposure contr ol, adjustment of the mA and/or kV according to patient size, use of iterative reconstruction technique). Reading Location: [id number]
[2024-07-01] MEDS: Morphine 4 MG/ML Syringe IM (09:49)
[2024-07-01 11:38] VITALS: BP 149/68; PULSE 75; RESP 16; TEMP 37.1; O2SAT 99
== END 2024-07-01 11:40 | disposition home or self-care (01) ==
PROVIDERS: Emergency Provider Emergency Medicine; PCP Registered Nurse; Visit Provider Emergency Medicine
DX: M54.50 Low back pain, unspecified (principal); C79.51 Secondary malignant neoplasm of bone; M51.16 Intervertebral disc disorders with radiculopathy, lumbar region; G89.29 Other chronic pain; I10 Essential (primary) hypertension; Z79.1 Long term (current) use of non-steroidal anti-inflammatories (NSAID); Z79.891 Long term (current) use of opiate analgesic; Z79.899 Other long term (current) drug therapy; Z87.891 Personal history of nicotine dependence
CPT/HCPCS: 72131; 96372; 99282

== ENCOUNTER → 2024-07-10 | Outpatient (CLI) | payer MEDICARE, SELFPAY ==
--- NOTE | 2024-07-10 06:51 | MRI_ITS ---
PROCEDURE: SPINE LUMBAR W/WO CONTRAST REASON FOR EXAM: METS PROSTATE CANCER; BACK PAIN AND RIGHT SCIATICA TECHNIQUE: Multisequence multiplanar MR imaging of the lumbar spine was performed with and without IV contrast. IV contrast: 22 mL Clariscan COMPARISON: CT 07/01/2024 FINDINGS: Axial T1 postcontrast imaging was performed without fat saturation, limiting this sequence. Diffuse enhancing T1 and T2 dark metastases throughout the visualized spine and sacrum, most significantly involving L1 and S1. Comparison with prior exam is limited by the differences in modality with no definite change identified. Many of these metastases demonstrate variably sclerotic correlates previously ranging from faint to densely sclerotic. No definite extraosseous components clearly identified allowing for the above limitation, with prominent ventral epidural enhancement favored to reflect the ventral epidural venous plexus. Vertebral body heights are preserved. Similar trace likely degenerative retrolisthesis at L2-L3, otherwise no significant malalignment. Conus medullaris terminates normally at the L1 level. No definite abnormal enhancement allowing for the above limitation on the axial postcontrast sequence. Diffuse disc desiccation. Additional level by level description as below: L1-2: Diffuse disc bulging asymmetric to the left. No significant spinal canal or foraminal stenosis. L2-3: Severe loss of disc height with diffuse disc bulging. Minimal facet arthropathy. No significant spinal canal or foraminal stenosis. L3-4: Diffuse disc bulging with a superimposed protrusion in the iftbi-[id number]-btvl-left foraminal and lateral regions. No significant spinal canal stenosis. Mild facet arthropathy. Mild zrop-[id number]-right foraminal stenosis. L4-5: Diffuse disc bulging. No significant spinal canal stenosis. Mild ligamentum flavum hypertrophy. Mild facet arthropathy. Mild left moderate right and mild left foraminal stenosis. L5-S1: Diffuse disc bulging greatest in the bilateral subarticular and foraminal regions. Mild facet arthropathy variant no significant spinal canal stenosis. Moderate right and mild/moderate left foraminal stenosis. Other: Cervical and thoracic spondylosis and diffuse spinal metastases, not well evaluated. Diverticulosis. MRI/Spine Lumbar W/WO Contrast IMPRESSION: 1. Diffuse osseous metastatic disease, difficult to compare with CT of 06/11/19 due to the difference in modality, however without definite change. Note that this places the patient at risk for future pathologic fracture. 2. Multilevel largely discogenic lumbar spondylosis as above, greatest at L2-L3 . Variable foraminal stenoses up to moderate on the right at L5-S1. No high-grade spinal canal stenosis identified. 3. Additional description as above. Reading Location: [id number]
[2024-07-10] MEDS: 0.9% Saline Lock 10 ML Syringe IV (07:43)
== END | disposition home or self-care (01) ==
PROVIDERS: PCP Registered Nurse; Referring Provider Internal Medicine Hematology & Oncology; Visit Provider Internal Medicine Hematology & Oncology
DX: Z45.2 Encounter for adjustment and management of vascular access device (principal); C79.51 Secondary malignant neoplasm of bone; C61 Malignant neoplasm of prostate; M54.41 Lumbago with sciatica, right side
CPT/HCPCS: 72158; A9575; A4216

== ENCOUNTER 2024-07-21 13:41 | Outpatient (RCR) | payer MEDICARE, SELFPAY ==
--- NOTE | 2024-07-21 17:04 | HP.PTEVAL_ITS ---
Patient's Visit Information Visit Information Visit Information: ANH VIRAMONTES is a 68 year old M referred to Physical Therapy by Dr. Jim Clarke MD with a diagnosis of Malaise. Date of Evaluation: 07/21/24 Physical Therapist: Anjel Snyder, PT, ATC Visit Plan Frequency: 2x /Week Duration: 2-4 Weeks Plan: SKTC/DKTC stretches, core stab ex's, nustep, and HEP. MH for pain Subjective Subjective: Pt reports he has been in severe LBP for an extended period of time. Pt reports he has metastatic cancer and believes this may be part of the cause. pt reports he is on fentanyl and has had injections into his hip in an attempt to decrease pain. Pt reports he is sleeping better at this time secondary to the fentanyl, but notes he is still in a lot of pain. Pt notes it is very difficult for his to lift his R leg at this time secondary to pain. Pt reports he is here today in an attempt to increase his strength overall as he feels like his ove rall strength and function have regressed significantly. Pt questions why he is here, asking if PT can really help him. Pt reports most of his pain is in the LB region, and extends to his R LE to the knee region. 8/10 pain at rest, 10/10 pain at worst. Pain LBP and R LE: Pain Intensity (Out of 10): 8 Pain Intensity Range: 10 Objective Objective: Most objective info is not obtainable at this time secondary to R leg pain. Supine SKTC/DKTC 10 sec x 5 ea decreased pain Transfers: Pt is min A when attempting to lye on the table secondary to R LE weakness Gait: Pt displays an atalgic gait pattern with ambulating in the treatment room. Used WC to get pt to Rx room. Balance/Special Test Scores Lower Extremity Functional Score: 25 Goals Goal 1:: Decrease LBP/L LE pain x 50% to aid with ambulation Goal Time Frame: 4-6 Weeks Goal 2:: Pt will be I with all transfers Goal Time Frame: 4-6 Weeks Goal 3:: I with HEp Goal Time Frame: 4-6 Weeks Rehabilitation Potential Physical Therapy Diagnosis: Pt has overall body weakness, R Leg pain, and difficulty with ambulation secondary to L/S DDD Rehabilitation Potential: Fair Anticipated Interventions Patient/Client Instruction: Educate patient on: Condition and Plan of Care For the Purpose of:: To improve self management Therapeutic Exercise to Include: Strength training, Endurance training, Postural training, Flexibilty training, Dynamic Lumbar Stabilization and Jelly Exercises For the Purpose of:: To decrease pain, To increase ROM and To improve muscle performance and motor function Text: Thank you for the opportunity to evaluate your patient. For Medicare and Medicare HMO plans, please review the plan of care and approve it. It will need to be FAXED BACK to us at [phone] for Medicare purposes. For Medicare only, by signing this I certify the plan of care. Please let me know if there are questions or concerns regarding this plan of care. Physician Signature: Date:
--- NOTE | 2024-11-09 14:37 | HP.PT.NRP ---
Patient Information Patient Information: ANH VIRAMONTES was seen in my office for initial evaluation on 07/21/24. The following Plan of Care was established for this patient: POC Established Initial Frequency: 2x /Week Initial Duration: 2-4 Weeks Anticipated Interventions Patient/Client Instruction: Educate patient on: Condition and Plan of Care For the Purpose of:: To improve self management Therapeutic Exercise to Include: Strength training, Endurance training, Postural training, Flexibilty training, Dynamic Lumbar Stabilization and Jelly Exercises For the Purpose of:: To decrease pain, To increase ROM and To improve muscle performance and motor function Last Seen Last Seen: This patient was last seen in our office . Pertinent comments regarding their Physical therapy will appear below: Pt has not returned for greater than 30 days and is discontinued at this time. At this point I will be discontinuing this patient from physical therapy. I would be happy to see this patient again in the future if found appropriate by the physician. Thank you! Anjel Snyder, PT, ATC Balance/Gait/Functional tests Balance/Special Test Scores Lower Extremity Functional Score: 25
== END 2024-07-21 19:00 | disposition home or self-care (01) ==
LOC: PT 13:41
PROVIDERS: PCP Registered Nurse; Referring Provider Internal Medicine Hematology & Oncology; Visit Provider Internal Medicine Hematology & Oncology
DX: C61 Malignant neoplasm of prostate (principal); C79.51 Secondary malignant neoplasm of bone
CPT/HCPCS: 97161

== ENCOUNTER → 2024-12-22 | Outpatient (CLI) | payer MEDICARE, SELFPAY ==
--- NOTE | 2024-12-22 07:30 | NM_ITS ---
PROCEDURE: BONE SCAN WHOLE BODY 12/22/2024 REASON FOR EXAM: F/U METS PROSTATE CANCER TECHNIQUE: Delayed whole-body bone scan, anterior and posterior, after radiopharmaceutical administration . RADIOPHARMACEUTICAL: 26.8 mCi Technetium-99m MDP IV COMPARISON: Lumbar MRI of 07/10/2024. FINDINGS: Superscan appearance, with marked paucity of renal activity noted. This is consistent with very extensive osseous metastatic disease. Most intense areas of increased uptake include the spine, sternum, bilateral ribs, bilateral scapulae, clavicles, bilateral humeri, bilateral femora, bilateral pelvis, and probably also the proximal left tibia or fibula. NM/Bone Scan Whole Body IMPRESSION: Superscan appearance, with additional findings as described. These are indicat wolf of severe/extensive osseous metastatic disease. Reading Location: [place] [id number]
== END | disposition home or self-care (01) ==
PROVIDERS: PCP Registered Nurse; Referring Provider Internal Medicine Hematology & Oncology; Visit Provider Internal Medicine Hematology & Oncology
DX: C61 Malignant neoplasm of prostate (principal); C79.51 Secondary malignant neoplasm of bone
CPT/HCPCS: 78306; A9503

== ENCOUNTER 2025-01-20 07:43 | Inpatient (IN) | payer MEDICARE, SELFPAY ==
[2025-01-20] VITALS (9 sets, daily range): BP systolic 147–175; BP diastolic 79–93; PULSE 77–92; RESP 16–20; TEMP 36.4–36.7; O2SAT 85–99; BMI 30.8
--- NOTE | 2025-01-20 07:58 | EX.ED.DYSGE1 ---
HPI History of Present Illness Chief Complaint: Back Detail of Chief Complaint: Pain Informant: patient Narrative Narrative: Patient presents with diffuse body pain that he rates a 9 or 10 out of 10. He tells me he has metastatic prostate cancer with metastasis to his back as well as ribs and other bony structures. Was seen at [facility] by specialist yesterday and started on prednisone. Also has hydrocodone for pain. Patient having hard time sleeping secondary to pain. Hydrocodone not helping his pain. Patient also has been seen by pain management in the past and was seen about a week ago and had an injection in his back that seem to help for a day or 2. Denies fevers or chills. He had some sweats due to pain and he has had some nausea. Denies abdominal pain. Last chemo was more than 45 days ago. [facility] Medical History Fatigue Bilateral lower extremity edema Hypocalcemia Mucositis Anemia Encounter for chemotherapy management Oral candidiasis Sleep disturbance Diarrhea Wears glasses Anxiety Arthritis Back pain Gastric reflux Non-smoker Leg cramps Hypertension Encounter for education Bone metastases Prostate cancer Home Medications ?Medication ?Instructions ?Recorded ?Last Taken ?Type omeprazole 20 mg capsule,delayed 20 mg PO DAILY PRN GERD 04/25/22 05/21/22 History release leuprolide (3 month) 22.5 mg (3 22.5 mg subcut [id number] 05/09/22 Unknown History month) subcutaneous syringe ([employer]) lisinopril 20 mg tablet 40 mg PO DAILY 05/14/23 Unknown History ibuprofen 200 mg tablet (Advil) 200 mg PO Q6H PRN fever or pain 07/14/24 Unknown History amlodipine 5 mg tablet 5 mg PO QDAY #60 tabs 09/11/24 Unknown Rx dexamethasone 4 mg tablet 4 mg PO .COMPLEX #30 tabs 09/21/24 Unknown Rx ondansetron 8 mg disintegrating 8 mg PO Q8H PRN nausea and 09/22/24 Unknown Rx tablet vomiting #30 tabs hydroxyzine HCl 50 mg tablet 50 mg PO QHS 09/29/24 Unknown History MAGIC MOUTH WASH (BMX) 180 mL 15 ml PO .Q6HR #180 mL 10/19/24 Unknown Rx suspension atenolol 50 mg tablet 50 mg PO DAILY #90 tabs 10/26/24 Unknown Rx Allergy/AdvReac Type Severity Reaction Status Date / Time Penicillins Allergy Unknown Verified 01/20/25 07:46 Family History Father Cardiac abnormality Diabetes Surgical History Hx of vasectomy Hx of knee surgery Hx of hernia repair Hx of hand surgery History of surgery on wrist Hx of colonoscopy History of surgery on arm Social History household members: spouse Smoking Status: Never smoker alcohol intake: never substance use type: does not use ROS ROS ED Review of Systems ROS Unobtainable: other Constitutional Constitutional ED: Reports lethargy; Denies chills, fever(s), sweats or weight loss Eyes Eyes: Denies blurry vision, change in vision or diplopia ENT ENT ED: Denies rhinorrhea or sore throat Cardiovascular Cardiovascular: Denies chest pain, orthopnea or racing heartbeat Respiratory/Chest Respiratory/Chest: Denies cough, dyspnea, dyspnea on exertion, orthopnea or sputum Gastrointestinal Gastrointestinal: Denies abdominal pain, diarrhea, nausea or vomiting Genitourinary Genitourinary ED: Denies dysuria, hematuria or urinary frequency Musculoskeletal Musculoskeletal: Reports arthralgias, back pain and other Details: Rib pain, shoulder pain ; Denies myalgias or neck pain Integumentary Denies abscess, Abrasions or rash Neurologic Neurologic: Denies headache(s) or weakness Psychiatric Psychiatric: Denies anxiety, depression or suicidal thoughts Endocrine Endocrinology: Denies polydipsia, polyphagia or polyuria Hematologic/Lymphatic Hematologic/Lymphatic: Denies easy bleeding, easy bruising or lymphadenopathy Allergic/Immunologic Allergic/Immunologic ED: Denies mouth swelling, tongue swelling or urticaria EXAM Physical Exam Narrative Exam Narrative: Somewhat anxious appearing. Const Vital Signs: 01/20/25 07:44 01/20/25 08:32 Temperature 97.9 F 98.0 F Temperature Source Oral Temporal Pulse Rate 92 78 Respiratory Rate 16 16 Blood Pressure 168/83 H 152/79 H Blood Pressure Mean 111 103 Pulse Ox 96 85 Oxygen Delivery Method Room Air Room Air Positive well nourished and well developed General Appearance ED: well developed and NAD HEENT Reports TM's clear and moist mucous membranes normocephalic and atraumatic; Negative for trauma or tenderness Tympanic Membrane ED: Yes TM's clear Eyes PERRL and EOMs intact bilaterally General Eye ED: Negative for pale conjunctiva or scleral icterus Neck no lymphadenopathy, supple and no JVD General: Negative for tenderness Chest Wall inspection of chest normal and palpation of chest normal Chest: Negative for tenderness Resp normal respiratory effort and clear to auscultation bilaterally Effort and Inspection: Negative for respiratory distress or pain with movement Auscultation: Negative for rhonchi, wheezes or diminished lung sounds Cardio regular rate, regular rhythm, S1 normal heart sound, S2 normal heart sound and no murmurs Peripheral Pulses: pulses 2+ throughout GI normal to inspection, nondistended, normoactive bowel sounds, soft to palpation, non-tender, non-distended and no masses Back/Spine no CVA tenderness and no thoracic nor lumbar tenderness Back/Spine Narrative: Diffuse tenderness palpation over the thoracic and lumbar spine. There is no erythema or warmth. Negative straight leg raises. Deep tendon reflexes plus 2 out of 4 bilaterally at the patella and Achilles. Patient has normal L5 extension bilaterally. Normal sensation to light touch Extremity normal to inspection General Extremety ED: Negative for edema General Extremity: Negative for edema Neuro oriented x3, CN's II-XII intact bilaterally, no sensory deficits noted and gait normal Sensorium / Orientation: awake, alert, oriented to person, oriented to place and oriented to time Motor Exam: strength 5/5 throughout and strength abnormal Psych mental status grossly normal Skin no rashes or lesions noted and no wounds MDM MDM MDM Narrative Medical decision making narrative: Patient presents to the emergency department with complaint of back pain and shoulder pain as well as rib pain. History of metastatic prostate cancer. Recently started prednisone. Following with pain management and had an injection in his low back a week ago which seemed to help for few days but then the pain came back. Describes some discomfort into the left leg has been chronic. He fell a week and a half ago pushing a lawnmower forward and had been sore from that. Clinically looks well however somewhat uncomfortable due to pain. IV line established. He was medicated Dilaudid and Zofran. Had some improvement in his pain but continues to complain of pain. He was given another 0.5 mg of Dilaudid. Patient was placed on nasal cannula O2 as his O2 sat did dip after administration of the Dilaudid. Chest x-ray obtained was essentially unremarkable. CBC with differential showed a white count of 9.3 with hemoglobin 9.6 and platelet count of 206. Chemistry is unremarkable other than slightly depressed sodium of 128. This point he continues to have significant discomfort. Will discuss with hospitalist to evaluate for admission for intractable back pain which I suspect is likely related to his metastatic prostate cancer. Lab Data Attestation: I reviewed the patient's lab results. Labs: Laboratory Results - last 24 hr 01/20/25 08:24 WBC 9.3 RBC 2.96 L Hgb 9.6 L Hct 27.8 L MCV 93.9 MCH 32.4 H MCHC 34.5 RDW Std Deviation 48.6 H RDW Coeff of Kameron 14.1 Plt Count 206 MPV 8.7 Immature Gran % (Auto) 1.600 H Neut % (Auto) 84.1 H Lymph % (Auto) 6.7 L [place] % (Auto) 7.5 Eos % (Auto) 0.0 Baso % (Auto) 0.1 Absolute Neuts (auto) 7.9 H Absolute Lymphs (auto) 0.63 L Nucleated RBC % 0 Sodium 128 L Potassium 4.3 Chloride 96 L Carbon Dioxide 17.2 L Anion Gap 15 BUN 23 H Creatinine 0.59 L Estim Creat Clear Calc 95.95 Est GFR (MDRD) Non-Af 105 BUN/Creatinine Ratio 38.4 H Glucose 200 H Calcium 8.4 Total Bilirubin 0.42 AST 61 H ALT 9 Alkaline Phosphatase 529 H Total Protein 6.2 Albumin 4.0 Globulin 2.2 Albumin/Globulin Ratio 1.8 Radiography Diagnostic Testing: Clinical Impression(s) from Imaging Studies Chest X-Ray 01/20/25 08:34 IMPRESSION: Questionable 2.2 cm nodule in the right midlung. Reading Location: [facility]1 Discharge Plan Dx/Rx/DC Orders Clinical Impression: Intractable pain, Prostate cancer metastatic to bone Disposition Disposition: Acute Care Hospital [facility]
[2025-01-20] MEDS: 0.9% Normal Saline (1000mL) 1,000 ML 150 ML IV (08:20)
--- NOTE | 2025-01-20 08:33 | ED.RN ---
spo2 dropped after iv dilaudid to 86% so o2 placed at 2l/nc. pt responded well and spo2 100% now.
--- NOTE | 2025-01-20 08:34 | RAD_ITS ---
PROCEDURE: CHEST 1 VIEW (PORTABLE) 01/20/2025 REASON FOR EXAM: CHEST PAIN TECHNIQUE: Frontal view of the chest. COMPARISON: Prior study dated May 21, 2022. FINDINGS: Hardware: A right-sided port a catheter is seen with the tip at the junction of the superior vena cava and right atrium. Heart: The heart size is normal. Lungs: Questionable 2.2 cm nodule in the right midlung. No focal infiltrate is seen. Bones: Degenerative changes are identified within the thoracic spine. Other: RAD/Chest 1 View (Portable) IMPRESSION: Questionable 2.2 cm nodule in the right midlung. Reading Location: [place] [id number]
[2025-01-20 08:40] LABS: Hematocrit 27.8 % (40-54); Hemoglobin 9.6 g/dL (13.0-16.5); Immature Granulocytes Count 0.150 X10^3/uL (0.0-0.0); Mean Corp Hgb Conc 34.5 g/dL (32-36); Mean Corpuscular Volume 93.9 fL (80-94); Mean Platelet Vol. 8.7 fl (6.2-12.0); NRBC Flagged by Analyzer 0 % (0-5); Platelet Count 206 K/mm3 (150-450); RBC Distribution Width CV 14.1 % (11.6-14.6); RBC Distribution Width SD 48.6 fl (35.1-43.9); Red Blood Count 2.96 M/mm3 (4.6-6.2); White Blood Count 9.3 K/mm3 (4.4-11.0)
[2025-01-20 08:58] LABS: AST(SGOT) 61 U/L (<=37); Alanine Aminotransfer ALT/SGPT 9 U/L (<=46); Albumin, Serum 4.0 g/dL (3.4-4.8); Alkaline Phosphatase 529 U/L (40-129); Anion Gap 15 (5-15); BUN 23 mg/dL (4-19); BUN/Creat Ratio 38.4 RATIO (10-20); Calcium,Total 8.4 mg/dL (7.6-11.0); Carbon Dioxide 17.2 mmol/L (21.0-32.0); Chloride 96 mmol/L (98-108); Estimated Creatinine Clearance 95.95 ml/min (50-250); Globulin 2.2 g/dL (2.2-4.2); Glucose 200 mg/dL (70-99); Potassium 4.3 mmol/L (3.3-5.1)
[2025-01-20] MEDS: HYDROmorphone 0.5 MG/0.5 ML SYRINGE IV (09:14)
--- NOTE | 2025-01-20 10:01 | PCM.HP.STD ---
HPI - General General Date of Admission: 01/20/25 Date of Service: 01/20/25 Chief Complaint: Severe lower back pain for 2 to 3 weeks HPI Narrative ANH VIRAMONTES, is a 69 M with history of prostate cancer diagnosed in 2021 came to ED for progressive worsening of severe back pain for 2 to 3 weeks. Patient had epidural pain injection by Dr. Sanchez a week ago last Saturday but relief lasted for about 1 to 2 days only. Pain is mainly over lower back, 10/10 intensity with mild radiation to left buttock region and thigh region. He does not have acute symptoms or red flags of cauda equina syndrome or conus medullaris. Chronic during the course of his prostate cancer patient had several rounds of chemotherapy and radiotherapy last one 2-4 months ago. In ED, patient was briefly hypoxic 85% on room air after giving Dilaudid therefore chest x-ray was done which shows questionable 2.2 cm nodule in the right middle lobe. Patient is further admitted for pain control and pain management consult. [facility] Medical History Fatigue Bilateral lower extremity edema Hypocalcemia Mucositis Anemia Encounter for chemotherapy management Oral candidiasis Sleep disturbance Diarrhea Wears glasses Anxiety Arthritis Back pain Gastric reflux Non-smoker Leg cramps Hypertension Encounter for education Bone metastases Prostate cancer Home Medications ?Medication ?Instructions ?Recorded ?Last Taken ?Type omeprazole 20 mg capsule,delayed 20 mg PO DAILY PRN GERD 04/25/22 05/21/22 History release leuprolide (3 month) 22.5 mg (3 22.5 mg subcut [id number] 05/09/22 Unknown History month) subcutaneous syringe ([employer]) lisinopril 20 mg tablet 40 mg PO DAILY 05/14/23 Unknown History ibuprofen 200 mg tablet (Advil) 200 mg PO Q6H PRN fever or pain 07/14/24 Unknown History amlodipine 5 mg tablet 5 mg PO QDAY #60 tabs 09/11/24 Unknown Rx dexamethasone 4 mg tablet 4 mg PO .COMPLEX #30 tabs 09/21/24 Unknown Rx ondansetron 8 mg disintegrating 8 mg PO Q8H PRN nausea and 09/22/24 Unknown Rx tablet vomiting #30 tabs hydroxyzine HCl 50 mg tablet 50 mg PO QHS 09/29/24 Unknown History MAGIC MOUTH WASH (BMX) 180 mL 15 ml PO .Q6HR #180 mL 10/19/24 Unknown Rx suspension atenolol 50 mg tablet 50 mg PO DAILY #90 tabs 10/26/24 Unknown Rx hydrocodone-acetaminophen 5-325mg 1 tab PO TID 01/20/25 Unknown History 5mg-325mg Allergy/AdvReac Type Severity Reaction Status Date / Time Penicillins Allergy Unknown Verified 01/20/25 07:46 Family History Father Cardiac abnormality Diabetes Surgical History Hx of vasectomy Hx of knee surgery Hx of hernia repair Hx of hand surgery History of surgery on wrist Hx of colonoscopy History of surgery on arm Social History household members: spouse Smoking Status: Never smoker alcohol intake: never substance use type: does not use ROS ROS Narrative Constitutional: Reports chronic fatigue and weakness. No fever. Compromised ADL HEENT: Reports systems reviewed and no addt'l complaints, except as documented Respiratory/Chest: Mild hypoxia as described in HPI, after IV Dilaudid, recovered. No acute shortness of breath or respiratory distress or wheezing. CVS: No acute chest pain Gastrointestinal: Did not move bowel movement for 4 days. Denies coffee ground emesis, hematemesis or vomiting Genitourinary: Chronic prostate cancer. Denies acute urinary retention. Denies dysuria Musculoskeletal: Severe back pain, difficulty in ambulation. On opioid medications. Neurologic: Denies seizure-like symptoms. No strokelike symptoms. skin: No ulcer. No rash Endocrinology: Reports systems reviewed and no addt'l complaints, except as documented Hematologic/Lymphatic: Reports systems reviewed and no addt'l complaints, except as documented Rest 14 ROS are negative except as mentioned in HPI Vital Signs Vital Signs Vital Signs: 01/20/25 07:44 01/20/25 08:32 Temperature 97.9 F 98.0 F Temperature Source Oral Temporal Pulse Rate 92 78 Respiratory Rate 16 16 Blood Pressure 168/83 H 152/79 H Blood Pressure Mean 111 103 Pulse Ox 96 85 Oxygen Delivery Method Room Air Room Air Weight Weight: 202 lb 13.204 oz Body Mass Index (BMI) 30.8 Physical Exam Narrative General: Alert, Oriented x3, Cooperative. BMI 30.8 kg/m? HEENT: Atraumatic, PERRLA, EOMI, Normocephalic. Oral: No Gingival or Mucosal Lesions/ Ulcerations Neck: Supple, No JVD, Negative Carotid Bruits Chest wall/Lungs: Mediport at right upper chest. Air entry diminished in bilateral lung bases. No crepitation/rhonchi Cardiovascular: Regular rate and rhythm, Normal S1,S2, No M/G/R Abdomen: Bowel Sounds sluggish, Soft, Non Tender, Non-Distended : No dysuria. No renal angle tenderness. No suprapubic tenderness. Extremities: No edema, Capillary Refill Less than 3 Seconds Skin: No rashes, No breakdown Musculoskeletal: No Tenderness to Palpation of Joints or Extremities Spine: Ipsilateral and cross leg SLR are negative bilaterally. Tenderness at lumbar spine. ROM over lumbar spine severely limited. Neurological: Cranial nerves II-XII grossly intact, DTR 2+/4. No acute focal neurological deficit. Psych/Mental Status: Flat affect. Results Lab / Micro Data 01/20/25 08:24 01/20/25 08:24 Labs: Laboratory Results - last 24 hr 01/20/25 08:24: WBC 9.3, RBC 2.96 L, Hgb 9.6 L, Hct 27.8 L, MCV 93.9, MCH 32.4 H, MCHC 34.5, RDW Std Deviation 48.6 H, RDW Coeff of Kameron 14.1, Plt Count 206, MPV 8.7, Immature Gran % (Auto) 1.600 H, Neut % (Auto) 84.1 H, Lymph % (Auto) 6.7 L, [facility] % (Auto) 7.5, Eos % (Auto) 0.0, Baso % (Auto) 0.1, Absolute Neuts (auto) 7.9 H, Absolute Lymphs (auto) 0.63 L, Nucleated RBC % 0, Sodium 128 L, Potassium 4.3, Chloride 96 L, Carbon Dioxide 17.2 L, Anion Gap 15, BUN 23 H, Creatinine 0.59 L, Estim Creat Clear Calc 95.95, Est GFR (MDRD) Non-Af 105, BUN/Creatinine Ratio 38.4 H, Glucose 200 H, Calcium 8.4, Total Bilirubin 0.42, AST 61 H, ALT 9, Alkaline Phosphatase 529 H, Total Protein 6.2, Albumin 4.0, Globulin 2.2, Albumin/Globulin Ratio 1.8 Imaging Radiology Impression Chest X-Ray 01/20/25 08:34 IMPRESSION: Questionable 2.2 cm nodule in the right midlung. Reading Location: [facility] Assessment & Plan Assessment/Plan (1) Prostate cancer metastatic to bone: (2) Intractable pain: PLAN: Plan This 69-year-old gentleman came to ED for intractable lower back pain worsening for 2 to 3 weeks, could not sleep or rest. 1. Acute debility due to intractable back pain, with restricted ADL/ambulation: Patient is being admitted to [facility] floor. Started on Tylenol 1 g Q8 hourly. Dilaudid and muscle relaxant ordered. Pain management consulted Dr. Augustin. PT and OT ordered. 2. Metastatic prostate cancer: Lumbar MRI in July 2024 shows diffuse osseous metastatic disease with multilevel largely discogenic lumbar spondylosis greatest at L2-L3 level. Moderate foraminal stenosis at L5-S1. No high-grade spinal canal stenosis. Patient had bone scan nuclear medicine in December 2024 which shows extent of osseous metastatic disease has markedly worsened compared to the prior bone scan of March 2024. It has metastasized to spine, sternum, bilateral ribs, bilateral scapula, clavicles, bilateral humeri, bilateral femoral, bilateral pelvis and proximal left tibia or fibula. Chest x-ray shows questionable 2.2 cm nodule in right midlung. Plan: Patient says that he he has follow-up with palliative care in [facility]. He has agreed for follow-up with palliative services here. Patient was seen by Dr. Clarke in December 2024 and at that time, the patient interested in consultation to [facility]. 3. Hypertension: Blood pressure is slightly elevated systolic 152 mmHg. On amlodipine, atenolol, lisinopril. 4. Anemia of chronic disease possible due to prostate cancer/chemotherapy in the past: H&H 9.6/27.8% better than previous 8.6/26.7% and 8.0/24% in December. 5. Chronic degenerative arthritis, limited ADL: PT and orders are ordered. 6. GERD: PPI continue 7. DVT prophylaxis high risk: Lovenox 40 mg subcu daily ordered. Bilateral SCDs Living will/advanced directive/end of life care: Patient does have living will or advanced directive. His power of commercial real estate attorney for health is his . After discussion of benefits/risks procedures involved with full code, DNR CC arrest and DNR CC, the patient opted for full code. Patient does want artificial life support including intubation, tube feed, ventilator and/chest compression, central venous catheter, vasopressor and DC shock if needed Total time spent in [id number] encounter in discussion of advanced directive 17 minutes. Laboratory Results 01/20/25 08:24: WBC 9.3, RBC 2.96 L, Hgb 9.6 L, Hct 27.8 L, MCV 93.9, MCH 32.4 H, MCHC 34.5, RDW Std Deviation 48.6 H, RDW Coeff of Kameron 14.1, Plt Count 206, MPV 8.7, Immature Gran % (Auto) 1.600 H, Neut % (Auto) 84.1 H, Lymph % (Auto) 6.7 L, [facility] % (Auto) 7.5, Eos % (Auto) 0.0, Baso % (Auto) 0.1, Absolute Neuts (auto) 7.9 H, Absolute Lymphs (auto) 0.63 L, Nucleated RBC % 0, Sodium 128 L, Potassium 4.3, Chloride 96 L, Carbon Dioxide 17.2 L, Anion Gap 15, BUN 23 H, Creatinine 0.59 L, Estim Creat Clear Calc 95.95, Est GFR (MDRD) Non-Af 105, BUN/Creatinine Ratio 38.4 H, Glucose 200 H, Calcium 8.4, Total Bilirubin 0.42, AST 61 H, ALT 9, Alkaline Phosphatase 529 H, Total Protein 6.2, Albumin 4.0, Globulin 2.2, Albumin/Globulin Ratio 1.8 Clinical Impression(s) from Imaging Studies Chest X-Ray 01/20/25 08:34 IMPRESSION: Questionable 2.2 cm nodule in the right midlung. Reading Location: [facility] Charges/Coding Visit Charges Inpatient E&M: 72447 Init Hosp L3 Procedures Hospitalists Procedures: 67756 Advncd Care Plan 30 Min
[2025-01-20] MEDS: Senna/Docusate Sodium 1 Tablet 2 TABLET PO ×2 (11:28→21:48)
[2025-01-20] MEDS: Psyllium 1 PACKET PO ×2 (11:28→21:44)
[2025-01-20] MEDS: 0.9% Normal Saline (1000mL) 1,000 ML 75 ML IV (11:29)
--- NOTE | 2025-01-20 11:46 | PCM.CONS.P ---
[facility] Medical History Fatigue Bilateral lower extremity edema Hypocalcemia Mucositis Anemia Encounter for chemotherapy management Oral candidiasis Sleep disturbance Diarrhea Wears glasses Anxiety Arthritis Back pain Gastric reflux Non-smoker Leg cramps Hypertension Encounter for education Bone metastases Prostate cancer Home Medications ?Medication ?Instructions ?Recorded ?Last Taken ?Type omeprazole 20 mg capsule,delayed 20 mg PO DAILY PRN GERD 04/25/22 05/21/22 History release leuprolide (3 month) 22.5 mg (3 22.5 mg subcut [id number] md ordered 05/09/22 Unknown History month) subcutaneous syringe (Eligard) lisinopril 20 mg tablet 40 mg PO DAILY 05/14/23 Unknown History ibuprofen 200 mg tablet (Advil) 200 mg PO Q6H PRN fever or pain 07/14/24 Unknown History amlodipine 5 mg tablet 5 mg PO QDAY #60 tabs 09/11/24 Unknown Rx dexamethasone 4 mg tablet 4 mg PO .COMPLEX #30 tabs 09/21/24 Unknown Rx ondansetron 8 mg disintegrating 8 mg PO Q8H PRN nausea and 09/22/24 Unknown Rx tablet vomiting #30 tabs hydroxyzine HCl 50 mg tablet 50 mg PO QHS 09/29/24 Unknown History MAGIC MOUTH WASH (BMX) 180 mL 15 ml PO .Q6HR stomatitis #180 mL 10/19/24 Unknown Rx suspension atenolol 50 mg tablet 50 mg PO DAILY #90 tabs 10/26/24 Unknown Rx hydrocodone-acetaminophen 5-325mg 1 tab PO TID 01/20/25 Unknown History 5mg-325mg Allergy/AdvReac Type Severity Reaction Status Date / Time Penicillins Allergy Unknown Verified 01/20/25 07:46 Family History Father Cardiac abnormality Diabetes Surgical History Hx of vasectomy Hx of knee surgery Hx of hernia repair Hx of hand surgery History of surgery on wrist Hx of colonoscopy History of surgery on arm Social History household members: spouse Smoking Status: Never smoker alcohol intake: never substance use type: does not use ROS Constitutional Constitutional: Reports body ache(s), difficulty sleeping, excessive sweating, malaise, poor appetite and weakness Eyes Eyes: Reports systems reviewed and no addt'l complaints, except as documented ENT HEENT: Reports systems reviewed and no addt'l complaints, except as documented Cardiovascular Cardiovascular: Reports systems reviewed and no addt'l complaints, except as documented Respiratory/Chest Respiratory/Chest: Reports systems reviewed and no addt'l complaints, except as documented Gastrointestinal Gastrointestinal: Reports anorexia and constipation Genitourinary Genitourinary: Reports systems reviewed and no addt'l complaints, except as documented Musculoskeletal Musculoskeletal: Reports arthralgias, back pain, extremity pain, joint pain and muscle weakness Integumentary Integumentary: Reports systems reviewed and no addt'l complaints, except as documented Neurologic Neurologic: Reports systems reviewed and no addt'l complaints, except as documented Psychiatric Psychiatric: Reports systems reviewed and no addt'l complaints, except as documented Endocrine Endocrinology: Reports systems reviewed and no addt'l complaints, except as documented Hematologic/Lymphatic Hematologic/Lymphatic: Reports anemia Allergic/Immunologic Allergic/Immunologic: Reports systems reviewed and no addt'l complaints, except as documented Physical Exam Const alert and oriented x3 General Appearance: cooperative HEENT normocephalic Resp normal respiratory effort Cardio regular rate GI GI Narrative: rounded -constipation x 4 days Extremity normal capillary refill Neuro Speech: speech normal Motor Exam: general weakness Psych affect normal Appearance: appropriate Charges/Coding Palliative Care Palliative Care: [id number] New Pt Consult 80+ min HPI Current admission Current Code Status: DNRCC-A cahnged from full code Associated Diagnosis: metastatic prostate CA, mets to the spine, uncontrolled pain Consult Data Date of Consult: 01/20/25 Location of consult: med/surg Reason for referral: goals of care and code status Referral source: [facility] Palliative care diagnosis (Summary list): metastatic prostate CA to spine Palliative care services/treatment (Accepted, as consult): accepted Case discussed with referring provider: code status and outpatient pallitiave care HPI Narrative HPI Narrative: 01/20/25: Prior to meeting with the patient at bedside I reviewed documentation, labs, radiological studies and notes from oncology. I then met with the patientRyder at bedside. I introduced myself and the concept of palliative care which he voluntarily excepted our services. Ryder was admitted through the ER today for uncontrolled pain related to metastatic prostate cancer. He has metastasis to the spine and iliac crest. Per oncology notes on 12/23 he did have radiological studies showing the extent of osseous metastatic disease had markedly worsened. He did receive chemo September through November of 2024 and then palliative radiation 08/27 through 09/02/2024. He did state that he went to pain management several days ago and received an injection to the spine for pain which she states only improved his pain for a couple of days. I did note on a chest x-ray that there is a questionable nodule that was noted in his right middle lobe, as well. Ryder states understanding that his cancer is not curable but he is hopeful that he can have more time with his family. He states that he does have 1 boy and 1 girl and 2 grandchildren. When talking about his goals of care he did state that he would like to continue medical management for his cancer to extend his life. He does not feel that he is ready for hospice, yet. He did state that he would be interested in palliative care outpatient services with [facility]. I did speak with case management to place the referral. Lastly we had an extensive discussion about CODE STATUS in which Ryder states that he, given his current disease process, does not feel that he would want to have chest compressions or be placed on the ventilator. I do feel that this is a good decision that he is making. He endorses a DNR CC?a with no intubation. I did update Dr. Sanford. All questions the patient had were answered. Palliative care will continue to follow his goals of care conversations as clinical picture evolves. Per Hospitalist: RYDER GUERRERO, is a 69 M with history of prostate cancer diagnosed in 2021 came to ED for progressive worsening of severe back pain for 2 to 3 weeks. Patient had epidural pain injection by Dr. Sanchez a week ago last Saturday but relief lasted for about 1 to 2 days only. Pain is mainly over lower back, 10/10 intensity with mild radiation to left buttock region and thigh region. He does not have acute symptoms or red flags of cauda equina syndrome or conus medullaris. Chronic during the course of his prostate cancer patient had several rounds of chemotherapy and radiotherapy last one 2-4 months ago. In ED, patient was briefly hypoxic 85% on room air after giving Dilaudid therefore chest x-ray was done which shows questionable 2.2 cm nodule in the right middle lobe. Patient is further admitted for pain control and pain management consult. Palliative Assessment Advanced Directive - Current Admission Advance Directive: Advance Directive ON ADMISSION - REFERENCE Do you have a Healthcare Yes 01/20/25 11:13 Living Will? Is a Healthcare Living Will No, requested patient bring 01/20/25 11:13 present in the medical record? copy into [facility] Do you have a Healthcare Power Yes 01/20/25 11:13 of [employer]? Is a Healthcare Power of No, requested patient bring 01/20/25 11:13 [employer] present in the copy into [facility] medical rec Name of Medical Power of charisse guerrero son 01/20/25 07:58 [employer] Do You Want Additional Declined 01/20/25 11:13 Information on Advanced Directives or Healthcare Proxy/DPOA comments: Psychosocial/Spiritual Information Living situation/Marital status: lives with outside of [place] location: [place] Supports: Family and oriental orthodox family Taoism/Ayse or spiritual preference: Patient attends [facility] Spiritual distress: Denies Prior functional status: Patient has required the use of a wheelchair lately because it is difficult to work walk because of pain. He is able to do his own ADLs. Assistive devices at home: Walker Cultrual issues: None Information about the patient as a person: Patient enjoys spending time in his garden. He does have a farm stand when he is able. He like to enjoy spending time with his family. Symptoms Palliative performance scale: 60 Palliative prognostic index: 1.0 prognosis is guarded related to his cancer diagnosis and progression Dyspnea symptoms: Mild Constipation symptoms: Moderate Nausea symptoms: Mild Vomiting symptoms: None Depression symptoms: Mild Anorexia symptoms: Moderate Cough symptoms: None Insomnia symptoms: Moderate (Related to pain) Diarrhea symptoms: None Fatigue symptoms: Severe Weakness symptoms: Moderate Confusion symptoms: None Objective Data Objective Data Vital Signs: Vital Signs Temp Pulse Resp BP Pulse Ox O2 Del Method O2 Flow Rate 98.0 F 84 16 160/83 H 96 Nasal Cannula 2 01/20/25 10:33 01/20/25 10:33 01/20/25 10:33 01/20/25 10:33 01/20/25 10:33 01/20/25 10:00 01/20/25 10:00 Oxygen Flow Rate (L/min) 2 Oxygen Delivery Method Nasal Cannula Weight: 202 lb 13.204 oz Body Mass Index (BMI) 30.8 Intake & Output: Intake and Output for Last 24 Hours 01/18/25 01/19/25 01/20/25 23:59 23:59 23:59 Intake Total 427.5 / 427.5 Balance 427.5 / 427.5 Lab / Micro Data Attestation: I reviewed the patient's lab results. 01/20/25 08:24 01/20/25 08:24 Labs: Laboratory Results - last 24 hr 01/20/25 08:24: WBC 9.3, RBC 2.96 L, Hgb 9.6 L, Hct 27.8 L, MCV 93.9, MCH 32.4 H, MCHC 34.5, RDW Std Deviation 48.6 H, RDW Coeff of Kameron 14.1, Plt Count 206, MPV 8.7, Immature Gran % (Auto) 1.600 H, Neut % (Auto) 84.1 H, Lymph % (Auto) 6.7 L, [place] % (Auto) 7.5, Eos % (Auto) 0.0, Baso % (Auto) 0.1, Absolute Neuts (auto) 7.9 H, Absolute Lymphs (auto) 0.63 L, Nucleated RBC % 0, Sodium 128 L, Potassium 4.3, Chloride 96 L, Carbon Dioxide 17.2 L, Anion Gap 15, BUN 23 H, Creatinine 0.59 L, Estim Creat Clear Calc 95.95, Est GFR (MDRD) Non-Af 105, BUN/Creatinine Ratio 38.4 H, Glucose 200 H, Calcium 8.4, Total Bilirubin 0.42, AST 61 H, ALT 9, Alkaline Phosphatase 529 H, Total Protein 6.2, Albumin 4.0, Globulin 2.2, Albumin/Globulin Ratio 1.8 Radiography Diagnostic Testing: Radiology Impression Chest X-Ray 01/20/25 08:34 IMPRESSION: Questionable 2.2 cm nodule in the right midlung. Reading Location: [place] [id number] Rhythm Strip Rhythm Strip: Sinus Rhythm Impressions & Recommendations Patient & Family Issues discussed with the patient and family: code status and goals of care Patient goal: is open to outpatient palliative [id number] Family goal: none at bedside Ethical & Legal Ethical and legal: none Recommentation Palliative recommendations: pt wants to continue aggressive medical mgmt. DNRCC-A, Outpatient palliative Encouter Achieved as a result of this Palliative Care Encounter: [ [id number], [id number]] minutes were spent in total for this visit which consisted, primarily of counseling and education dealing with the complex and emotionally intense issues of symptom management and palliative care in the setting of serious and potentially life-threatening illness. Review of documentation, labs and radiological studies. ?Patient/family had the opportunity to ask questions This note was generated using a voice recognition system software. Although it was reviewed by the author prior to finalization, it may still contain incorrect words, spelling, and punctuation that were not noted when reviewing prior to saving. If a clinically significant typo or inaccurately typed phrase is noted, please notify the author. Plan (1) Prostate cancer metastatic to bone: PLAN: Medical management per primary team (2) Intractable pain: PLAN: Pain management per pain management (3) Fatigue: PLAN: Medical management per primary team (4) Palliative care encounter: PLAN: *[facility] to [facility] (5) Counseling regarding goals of care: PLAN: *pt changed code status to DNRCC-A, no intubation *will continue to follow as clinical picture evolves
--- NOTE | 2025-01-20 12:23 | PCM.HOSP.N ---
Hospitalist Note Patient was seen by the palliative nurse, Cindy. After talking to the family, the patient agreed for DNR CC arrest with no intubation. CODE STATUS changed. He wants to follow with outpatient palliative care.
--- NOTE | 2025-01-20 15:10 | CASEMGMT ---
HARJINDER ONEILL NOTE: Referral sent to [facility] via e-mail. Trevor JOINER RN CM
--- NOTE | 2025-01-20 15:35 | CASEMGMT ---
Social Work- SW met with pt and pt to verify directives. Pt reports that , Allyn, is primary HCPOA. Dtr Rolando Cuellar is alternate agent. Pt reports no additional needs at this time. SW remains available to follow. Pt reports that pt has a PET scan and an appointment with palliative pain management next week (01/28) at [facility]. Pt then sees Dr Crawford, oncologist, the following week. BRAD Mckinney
[2025-01-20] MEDS: Polyethylene Glycol 3350 17 GM PACKET PO (21:43)
[2025-01-21 03:38] VITALS: BP 140/66; PULSE 79; RESP 16; TEMP 36.5; O2SAT 95
[2025-01-21 05:52] VITALS: BMI 30.9
[2025-01-21 06:04] LABS: Hematocrit 29.8 % (40-54); Hemoglobin 9.9 g/dL (13.0-16.5); Immature Granulocytes Count 0.050 X10^3/uL (0.0-0.0); Mean Corp Hgb Conc 33.2 g/dL (32-36); Mean Corpuscular Volume 96.8 fL (80-94); Mean Platelet Vol. 9.1 fl (6.2-12.0); NRBC Flagged by Analyzer 0 % (0-5); Platelet Count 135 K/mm3 (150-450); RBC Distribution Width CV 14.6 % (11.6-14.6); RBC Distribution Width SD 51.2 fl (35.1-43.9); Red Blood Count 3.08 M/mm3 (4.6-6.2); White Blood Count 6.5 K/mm3 (4.4-11.0)
[2025-01-21 06:46] LABS: Anion Gap 11 (5-15); BUN 28 mg/dL (4-19); BUN/Creat Ratio 39.7 RATIO (10-20); Calcium,Total 8.5 mg/dL (7.6-11.0); Carbon Dioxide 21.1 mmol/L (21.0-32.0); Chloride 94 mmol/L (98-108); Estimated Creatinine Clearance 96.10 ml/min (50-250); Glucose 168 mg/dL (70-99); Potassium 5.6 mmol/L (3.3-5.1)
[2025-01-21 08:32] VITALS: BP 144/75; PULSE 88; RESP 16; TEMP 35.8; O2SAT 95
[2025-01-21] MEDS: Polyethylene Glycol 3350 17 GM PACKET PO (08:41)
[2025-01-21] MEDS: Senna/Docusate Sodium 1 Tablet 2 TABLET PO (08:41)
--- NOTE | 2025-01-21 10:05 | PCM.DC ---
Discharge Instructions DC O2, CPAP, BIPAP needs Home O2 Discharge instructions: No Dressing / Incision Discharge Activity: Return to Normal Activity Weight Bearing Status: Weight bearing as tolerated Dressing / Incision Call your doctor if you observe: Fever of 101 or Higher, Coldness, Increased Pain, Numbness or Tingling, Change in Color, Inability to urinate, Inability to have a bowel movement, Shortness of breath, Dizziness, Fainting spells, Swelling in the ankles, Chest pain, Prolonged hiccupping, Increased palpitations (irregular heartbeat) and Calf discomfort Follow Up Care When: IN 2 WEEKS Test Results: Test results from this visit will be discussed in further detail at your follow-up appointment, if applicable. Discharge Plan Admission Admit Date/Time: 01/20/25 09:21 Primary Reason for Your Visit: Acute on chronic back pain Attending Provider: Trung Sanford Primary Care Provider: Patti Gomez NP Consulting Providers: Pawan Augustin; Cindy Pompa Instructions Additional Instructions / Restrictions: Dr. Sanchez will send the prescription for methadone for 1 week. Discussed with him. Gkdk-hgf-dshmspl stool softener senna S and psyllium. Discharge Orders/Prescriptions Prescriptions: New acetaminophen 500 mg Tablet 1,000 mg PO Q8 PRNQty: 0 0RF Rx Instructions: Dzbb-hme-fbljihl sennosides-docusate sodium [Stimulant Laxative Plus] 8.6-50 mg Tablet 2 tab PO BID Qty: 0 0RF Rx Instructions: Pofj-qtt-eiqnhuh Daily Fiber (psyllium-aspart) 3 gram Powder In Packet 1 packet PO BID Qty: 0 0RF Rx Instructions: Fcgo-gui-pgvqaaj Continued omeprazole 20 mg capsule,delayed release(DR/EC) 20 mg PO DAILY PRN (Reason: GERD) Eligard (3 month) 22.5 mg syringe 22.5 mg subcut [id number] Patient Comments: pt took around 2 months ago, not needed at this time lisinopril 20 mg tablet 40 mg PO DAILY ibuprofen [Advil] 200 mg tablet 200 mg PO Q6H PRN (Reason: fever or pain) amlodipine 5 mg tablet 5 mg PO QDAY Qty: 60 2RF hydroxyzine HCl 50 mg tablet 50 mg PO QHS ondansetron 8 mg tablet,disintegrating 8 mg PO Q8H PRN (Reason: nausea and vomiting) Qty: 30 2RF MAGIC MOUTH WASH (BMX) 180 mL suspension 15 ml PO .Q6HR Qty: 180 5RF Rx Instructions: diphenhydramine 12.5 mg/5 mL oral liquid 60 mL; aluminum-mag hydroxide-simethicone 400 mg-400 mg-40 mg/5 mL oral susp 60 mL; Lidocaine Viscous 2 % mucosal solution 60 mL; Per 180 mL atenolol 50 mg tablet 50 mg PO DAILY Qty: 90 3RF Held dexamethasone 4 mg tablet 4 mg PO .COMPLEX Qty: 30 2RF Hold Instructions: It is only for chemotherapy Patient Comments: just started first dose yest. Rx Instructions: 4 mg orally Take 8 mg the evening before, the morning of and the evening of days of chemotherapy, repeat with every cycle (3 weeks cycles); Take 8 mg the evening before, the morning of and the evening of days of chemotherapy, repeat with every cycle (3 weeks cycles) Discontinued hydrocodone-acetaminophen 5-325 mg tablet 1 tab PO TID Referrals / Follow Up: Pawan Augustin MD [Med Staff - Active Staff, Pain Management] - Within 2 Weeks Patti Gomez NP, [employer]MING [employer] TECHNICIAN-C [Primary Care Provider, Family Practice] - Within 1 Week Jim Clarke MD [Med Staff - Active Staff, Oncology] Referral Note: as scheduled Disposition Disposition (needs filled in before D/C Order can be placed): Detention Facility
--- NOTE | 2025-01-21 10:05 | PCM.PN.BLA ---
Progress Note Pt has an appointment with [facility] palliative for follow up and pain management. Patients goals of care have been established and code status updated. Palliative care will follow remotely.
--- NOTE | 2025-01-21 12:05 | CASEMGMT ---
RN?CM?INVAS TECH?CM?to room to meet with patient for initial transition planning/care coordination?assessment.?RN?CM?introduced self and role at [facility].? Pt voices understanding and consents to?assessment?at this time.? Pt resting in bed in no distress at this time.? Daughter, Rolando, in room visiting and pt agreeable to her being present during assessment. Pt is A/O at this time and answers all questions appropriately.?? Care providers, pharmacy, and demographics verified/updated at this time. Strata: 2 PCP: KAREN Gomez Specialists: Dr Torres & Dr Clarke- oncology, Dr Augustin-pain mgnt. Pt also has appt @ [facility] palliative pain mgnt 01/[address] Crawford, oncologist @ [facility], the following week. Preferred Pharmacy: [facility] retail Insurance: to[employer] Prescription Benefit:?yes LNOK: , Allyn. Son, Iván. Daughter, Rolando Living Arrangements: Lives w/ in 2-story home w/2 steps to enter. Bedroom and bathroom on 2nd floor. There is also a 1/2 bath on main floor. Could do [facility] if needed. Independent w/ADL's. manages pt's medications/sets up weekly pill container. does most home mgnt tasks. Transportation:?Pt states drives self and states no transportation concerns at this time.? or another family member will take him home @ [place]. DME: States has the following DME:?grab bars, cane. Pt has a tub seat available if needed. ?Pt states no need for further DME at this time.? HHC/SNF: No hx of either. No needs identified. Pt wishes to return home and states has no concerns with going home at time of discharge. He denies need for HHC or OP therapy. Pt and daughter voice no concerns/needs at this time.? PLAN:??Home Trevor WEBERN?RN?CM
[2025-01-21 13:55] VITALS: BP 134/69; PULSE 88; RESP 16; TEMP 35.6; O2SAT 95
[2025-01-21] MEDS: Psyllium 1 PACKET PO (13:57)
--- NOTE | 2025-01-21 14:05 | DS.PCM_ITS ---
Providers Date of Admission: 01/20/25 Date of Discharge: 01/21/25 Primary Care Physician: Patti Gomez, ENA Consultations 01/20/25 11:10 Consult: Pain Management Routine Consulting Provider: Pawan Augustin Reason for Consult: acute on chr back pain EMERGENT Consult: No MD Notified: Yes Date Notified: 01/20/25 Time Notified: : Method of Notification: Text 01/20/25 11:14 Consult: Inpatient Palliative Care Routine Consulting Provider: Cindy Pompa Reason for Consult: diffuse metastatic prostate cancer to spine EMERGENT Consult: No MD Notified: Yes Date Notified: 01/20/25 Time Notified: 11:14 Method of Notification: Text Reason For Visit: ACUTE ON CHRONIC BACK PAIN, SPINAL METS FROM Diagnosis Discharge Diagnosis (1) Prostate cancer metastatic to bone: Status: Acute Code(s): C61 - Malignant neoplasm of prostate; C79.51 - Secondary malignant neoplasm of bone (2) Intractable pain: Status: Acute Code(s): R52 - Pain, unspecified (3) Fatigue: Status: Acute Code(s): R53.83 - Other fatigue (4) Palliative care encounter: Status: Acute Code(s): Z51.5 - Encounter for palliative care (5) Counseling regarding goals of care: Status: Acute Code(s): Z71.89 - Other specified counseling Plan This 69-year-old gentleman came to ED for intractable lower back pain worsening for 2 to 3 weeks, could not sleep or rest. 1. Acute debility due to intractable back pain, with restricted ADL/ambulation: Patient is being admitted to [facility] floor. Started on Tylenol 1 g Q8 hourly. Dilaudid and muscle relaxant ordered. Pain management consulted Dr. Augustin. PT and OT ordered. 2. Metastatic prostate cancer: Lumbar MRI in July 2024 shows diffuse osseous metastatic disease with multilevel largely discogenic lumbar spondylosis greatest at L2-L3 level. Moderate foraminal stenosis at L5-S1. No high-grade spinal canal stenosis. Patient had bone scan nuclear medicine in December 2024 which shows extent of osseous metastatic disease has markedly worsened compared to the prior bone scan of March 2024. It has metastasized to spine, sternum, bilateral ribs, bilateral scapula, clavicles, bilateral humeri, bilateral femoral, bilateral pelvis and proximal left tibia or fibula. Chest x-ray shows questionable 2.2 cm nodule in right midlung. Plan: Patient says that he he has follow-up with palliative care in [facility]. He has agreed for follow-up with palliative services here. Patient was seen by Dr. Clarke in December 2024 and at that time, the patient interested in consultation to [facility]. 01/21: Pain is controlled. He wants to go home. Discussed with the pain management Dr. Augustin. He will send prescription of methadone 10 mg twice daily for 1 week. Follow-up with him in 2 weeks. Follow-up with oncologist Dr. Clarke. 3. Hypertension: Blood pressure is slightly elevated systolic 152 mmHg. On amlodipine, atenolol, lisinopril. 4. Anemia of chronic disease possible due to prostate cancer/chemotherapy in the past: H&H 9.6/27.8% better than previous 8.6/26.7% and 8.0/24% in December. 5. Chronic degenerative arthritis, limited ADL: PT and orders are ordered. 6. GERD: PPI continue 7. DVT prophylaxis high risk: Lovenox 40 mg subcu daily ordered. Bilateral SCDs 8. Chronic constipation: Patient had 5 pieces of hard stool after aggressive regimen of stool softener and Dulcolax suppository. Patient states sometimes he takes enema at home. Advised to take senna S and psyllium and MiraLAX at home available [id number]. Avoid constipation. Living will/advanced directive/end of life care: Patient does have living will or advanced directive. His power of ip attorney for health is his . After discussion of benefits/risks procedures involved with full code, DNR CC arrest and DNR CC, the patient opted for full code. Patient does want artificial life support including intubation, tube feed, ventilator and/chest compression, central venous catheter, vasopressor and DC shock if needed Discharge medication reconciliation done. Discharge follow-up instructions completed. Discharge process discussed with the patient and all questions were answered to patient's satisfaction. Follow with PCP in 1 to 2 weeks Total time spent, exact 35 minutes on discharge meds reconciliation, examination, coordination of care with nurses and ancillary staff, review of imaging and blood test and discussion with the patient on follow-up instructions. Laboratory Results 01/20/25 08:24: WBC 9.3, RBC 2.96 L, Hgb 9.6 L, Hct 27.8 L, MCV 93.9, MCH 32.4 H , MCHC 34.5, RDW Std Deviation 48.6 H, RDW Coeff of Kameron 14.1, Plt Count 206, MPV 8.7, Immature Gran % (Auto) 1.600 H, Neut % (Auto) 84.1 H, Lymph % (Auto) 6.7 L, [place] % (Auto) 7.5, Eos % (Auto) 0.0, Baso % (Auto) 0.1, Absolute Neuts (auto) 7.9 H, Absolute Lymphs (auto) 0.63 L, Nucleated RBC % 0, Sodium 128 L, Potassium 4.3, Chloride 96 L, Carbon Dioxide 17.2 L, Anion Gap 15, BUN 23 H, Creatinine 0.59 L, Estim Creat Clear Calc 95.95, Est GFR (MDRD) Non-Af 105, BUN/Creatinine Ratio 38.4 H, Glucose 200 H, Calcium 8.4, Total Bilirubin 0.42, AST 61 H, ALT 9, Alkaline Phosphatase 529 H, Total Protein 6.2, Albumin 4.0, Globulin 2.2, Albumin/Globulin Ratio 1.8 Clinical Impression(s) from Imaging Studies Chest X-Ray 01/20/25 08:34 IMPRESSION: Questionable 2.2 cm nodule in the right midlung. Reading Location: [facility] Medications at Discharge Home Medications omeprazole 20 mg capsule,delayed release 20 mg PO DAILY PRN GERD 04/25/22 leuprolide (3 month) 22.5 mg (3 month) subcutaneous syringe (Eligard) 22.5 mg subcut [id number] ordered 05/09/22 lisinopril 20 mg tablet 40 mg PO DAILY 05/14/23 ibuprofen 200 mg tablet (Advil) 200 mg PO Q6H PRN fever or pain 07/14/24 amlodipine 5 mg tablet 5 mg PO QDAY #60 tabs 09/11/24 dexamethasone 4 mg tablet 4 mg PO .COMPLEX #30 tabs 09/21/24 Held on 01/21/25. Instructions: It is only for chemotherapy ondansetron 8 mg disintegrating tablet 8 mg PO Q8H PRN nausea and vomiting #30 tabs 09/22/24 hydroxyzine HCl 50 mg tablet 50 mg PO QHS 09/29/24 MAGIC MOUTH WASH (BMX) 180 mL suspension 15 ml PO .Q6HR stomatitis #180 mL 10/19/24 atenolol 50 mg tablet 50 mg PO DAILY #90 tabs 10/26/24 acetaminophen 500 mg tablet 1,000 mg (2 x 500 mg) PO Q8 PRN #0 tabs 01/21/25 psyllium husk 3 gram oral powder packet (Daily Fiber (psyllium-aspartame)) 1 packet PO BID #0 ea 01/21/25 sennosides 8.6 mg-docusate sodium 50 mg tablet (Stimulant Laxative Plus) 2 tab PO BID #0 tabs 01/21/25 Physical Exam Narrative Seen and examined. Patient's pain is controlled. He moved his bowel. Abdominal distention less. Patient was seen by pain management Dr. Sanchez and prescribed methadone. Dilaudid discontinued Physical exam: General: Alert, Oriented x3, Cooperative. BMI 30.8 kg/m? HEENT: Atraumatic, PERRLA, EOMI, Normocephalic. Oral: No Gingival or Mucosal Lesions/ Ulcerations Neck: Supple, No JVD, Negative Carotid Bruits Chest wall/Lungs: Mediport at right upper chest. Air entry diminished in bilateral lung bases. No crepitation/rhonchi Cardiovascular: Regular rate and rhythm, Normal S1,S2, No M/G/R Abdomen: Bowel Sounds present, Soft, Non Tender, Non-Distended : No dysuria. No renal angle tenderness. No suprapubic tenderness. Extremities: No edema, Capillary Refill Less than 3 Seconds Skin: No rashes, No breakdown Musculoskeletal: No Tenderness to Palpation of Joints or Extremities Spine: Ipsilateral and cross leg SLR are negative bilaterally. Mild chronic tenderness at lumbar spine. ROM over lumbar spine severely limited. Neurological: Cranial nerves II-XII grossly intact, DTR 2+/4. No acute focal neurological deficit. Psych/Mental Status: Flat affect. Medical Records Data Medical Nutrition Assessment Dietitian: Malnutrition Criteria Met Start: 01/21/25 11:09 Freq: Status: Active Protocol: Document 01/21/25 11:09 SB (Rec: 01/21/25 11:09 SB [id number]) Nutrition Malnutrition Evidence of Yes Malnutrition Exists Malnutrition (severe Chronic ): Evidenced By Suboptimal Energy Intake (Severe),Weight Loss (Severe) Clinical Problem Chronic Disease or Condition Related Malnutrition Etiology severe malnutrition related to inadequate oral intake and increased energy expenditure due to metastatic prostate cancer Signs/Symptoms as evidenced by PO meeting <50% of estimated nutrition needs < 1 month and 15% unintentional weight loss x 7 months. Status Active Problem Recommendation Dietitian Continue regular diet. Recommendations/ Will order 240ml chocolate carnation breakfast TID with Changes meals. Will monitor weight trends. Weight / BMI Weight Weight: 203 lb 7.787 oz Body Mass Index (BMI) 30.9 ABG / Lab / Microbiology Data 01/21/25 05:32 01/21/25 05:32 Laboratory: Laboratory Results - last 24 hr 01/21/25 05:32: WBC 6.5, RBC 3.08 L, Hgb 9.9 L, Hct 29.8 L, MCV 96.8 H, MCH 32.1 H, MCHC 33.2, RDW Std Deviation 51.2 H, RDW Coeff of Kameron 14.6, Plt Count 135 L, MPV 9.1, Immature Gran % (Auto) 0.800, Neut % (Auto) 77.3 H, Lymph % (Auto) 12.1 L, [place] % (Auto) 9.1, Eos % (Auto) 0.5, Baso % (Auto) 0.2, Absolute Neuts (auto) 5.0, Absolute Lymphs (auto) 0.78 L, Nucleated RBC % 0, Sodium 127 L, Potassium 5.6 H, Chloride 94 L, Carbon Dioxide 21.1, Anion Gap 11, BUN 28 H, Creatinine 0.70, Estim Creat Clear Calc 96.10, Est GFR (MDRD) Non-Af 100, BUN/Creatinine Ratio 39.7 H, Glucose 168 H, Calcium 8.5 D/C Instructions DC O2, CPAP, BIPAP Needs Home O2 Discharge instructions: No Meaningful Use Info Meaningful Use Meaningful Use Diagnoses (Choose all that apply): None applicable Discharge Plan Admission Admit Date/Time: 01/20/25 09:21 Primary Reason for Your Visit: Acute on chronic back pain Attending Provider: Trung Sanford Primary Care Provider: Patti Gomez DOG BARBER Consulting Providers: Pawan Augustin; Cindy Pompa Instructions Additional Instructions / Restrictions: Dr. Sanchez will send the prescription for methadone for 1 week. Discussed with him. [id number]-guqwokc stool softener senna S and psyllium. Discharge Orders/Prescriptions Prescriptions: New acetaminophen 500 mg Tablet 1,000 mg PO Q8 PRNQty: 0 0RF Rx Instructions: [id number] sennosides-docusate sodium [Stimulant Laxative Plus] 8.6-50 mg Tablet 2 tab PO BID Qty: 0 0RF Rx Instructions: Suzy-wnk-kpjqkhy Daily Fiber (psyllium-aspart) 3 gram Powder In Packet 1 packet PO BID Qty: 0 0RF Rx Instructions: [id number] Continued omeprazole 20 mg capsule,delayed release(DR/EC) 20 mg PO DAILY PRN (Reason: GERD) Eligard (3 month) 22.5 mg syringe 22.5 mg subcut [id number] Patient Comments: pt took around 2 months ago, not needed at this time lisinopril 20 mg tablet 40 mg PO DAILY ibuprofen [Advil] 200 mg tablet 200 mg PO Q6H PRN (Reason: fever or pain) amlodipine 5 mg tablet 5 mg PO QDAY Qty: 60 2RF hydroxyzine HCl 50 mg tablet 50 mg PO QHS ondansetron 8 mg tablet,disintegrating 8 mg PO Q8H PRN (Reason: nausea and vomiting) Qty: 30 2RF MAGIC MOUTH WASH (BMX) 180 mL suspension 15 ml PO .Q6HR Qty: 180 5RF Rx Instructions: diphenhydramine 12.5 mg/5 mL oral liquid 60 mL; aluminum-mag hydroxide- simethicone 400 mg-400 mg-40 mg/5 mL oral susp 60 mL; Lidocaine Viscous 2 % mucosal solution 60 mL; Per 180 mL atenolol 50 mg tablet 50 mg PO DAILY Qty: 90 3RF Held dexamethasone 4 mg tablet 4 mg PO .COMPLEX Qty: 30 2RF Hold Instructions: It is only for chemotherapy Patient Comments: just started first dose yest. Rx Instructions: 4 mg orally Take 8 mg the evening before, the morning of and the evening of days of chemotherapy, repeat with every cycle (3 weeks cycles); Take 8 mg the evening before, the morning of and the evening of days of chemotherapy, repeat with every cycle (3 weeks cycles) Discontinued hydrocodone-acetaminophen 5-325 mg tablet 1 tab PO TID Referrals / Follow Up: Pawan Augustin MD [Med Staff - Active Staff, Pain Management] - Within 2 Weeks Jim Clarke MD [Med Staff - Active Staff, Oncology] Referral Note: as scheduled Patti Gomez NP, DOG BARBER-C [Primary Care Provider, Family Practice] - Within 1 Week Disposition Disposition (needs filled in before D/C Order can be placed): [facility] Facility Charges/Coding Visit Charges Inpatient E&M: 93905 Disch Hosp >30min
--- NOTE | 2025-01-21 14:27 | PHA.DC.MR.R ---
Pharmacy [place] Med Reconciliation Pharmacy Service has performed discharge medication reconciliation for this patient. The patient's discharge medication list was reviewed for discrepancies and discrepancies were resolved. Medications at Discharge Home Medications omeprazole 20 mg capsule,delayed release 20 mg PO DAILY PRN GERD 04/25/22 leuprolide (3 month) 22.5 mg (3 month) subcutaneous syringe (Eligard) 22.5 mg subcut [id number] md ordered 05/09/22 lisinopril 20 mg tablet 40 mg PO DAILY 05/14/23 ibuprofen 200 mg tablet (Advil) 200 mg PO Q6H PRN fever or pain 07/14/24 amlodipine 5 mg tablet 5 mg PO QDAY #60 tabs 09/11/24 dexamethasone 4 mg tablet 4 mg PO .COMPLEX #30 tabs 09/21/24 Held on 01/21/25. Instructions: It is only for chemotherapy ondansetron 8 mg disintegrating tablet 8 mg PO Q8H PRN nausea and vomiting #30 tabs 09/22/24 hydroxyzine HCl 50 mg tablet 50 mg PO QHS 09/29/24 MAGIC MOUTH WASH (BMX) 180 mL suspension 15 ml PO .Q6HR stomatitis #180 mL 10/19/24 atenolol 50 mg tablet 50 mg PO DAILY #90 tabs 10/26/24 acetaminophen 500 mg tablet 1,000 mg (2 x 500 mg) PO Q8 PRN #0 tabs 01/21/25 psyllium husk 3 gram oral powder packet (Daily Fiber (psyllium-aspartame)) 1 packet PO BID #0 ea 01/21/25 sennosides 8.6 mg-docusate sodium 50 mg tablet (Stimulant Laxative Plus) 2 tab PO BID #0 tabs 01/21/25
--- NOTE | 2025-01-21 15:19 | CASEMGMT ---
Received confirmation from [facility] palliative that they did receive the referral for pt.
[2025-01-21] MEDS: 0.9% Saline Lock 10 ML Syringe IV (15:45)
--- NOTE | 2025-01-21 15:46 | CASEMGMT ---
TC to Dr. Augustin's office, spoke with Dinorah. She is aware pt pharmacy is [facility] and asked if Dr. Augustin was calling in the methadone. She states she will give him the message, relayed to pt nurse.
--- NOTE | 2025-03-05 14:43 | CASEMGMT ---
HARJINDER ONEILL NOTE: Referral for palliative care made to [facility] in January. HARJINDER ONEILL placed call to pt to f/u on this referral. No answer. VM left asking for return call to this HARJINDER ONEILL. Trevor WEBERN HARJINDER CM
== END 2025-01-21 16:22 | disposition home or self-care (01) | DRG 948 ==
LOC: ED 09:21 → MS3 09:36
PROVIDERS: Admitting Provider Internal Medicine; Emergency Provider Emergency Medicine; PCP Registered Nurse; Visit Provider Internal Medicine
DX: G89.3 Neoplasm related pain (acute) (chronic) (principal); E46 Unspecified protein-calorie malnutrition; C79.51 Secondary malignant neoplasm of bone; Z51.5 Encounter for palliative care; Z66 Do not resuscitate; C61 Malignant neoplasm of prostate; I10 Essential (primary) hypertension; Z68.30 Body mass index [BMI] 30.0-30.9, adult; K21.9 Gastro-esophageal reflux disease without esophagitis; M48.07 Spinal stenosis, lumbosacral region; M54.50 Low back pain, unspecified; K59.09 Other constipation; R07.82 Intercostal pain; G89.4 Chronic pain syndrome; R91.1 Solitary pulmonary nodule; R53.81 Other malaise; Z79.899 Other long term (current) drug therapy; Z92.21 Personal history of antineoplastic chemotherapy; Z92.3 Personal history of irradiation; Z79.891 Long term (current) use of opiate analgesic
CPT/HCPCS: 36415; 36591; 71045; 80048; 80053; 85025; 94668; 97162; 97166; 99285; A4216; J2405